=== PATIENT | male | born 1955 | race Caucasian/White ===

== ENCOUNTER 2022-01-13 07:59 | Outpatient (CLI) | payer BC, SELFPAY | END 2022-01-13 08:00 | disposition home or self-care (01) | PROVIDERS: PCP Surgery; Visit Provider Orthopaedic Surgery | DX: Z01.818 Encounter for other preprocedural examination (principal) | CPT/HCPCS: 36415; 86850; 86900; 86901 ==

== ENCOUNTER 2022-01-15 09:31 | Day surgery (SDC) | payer BC, SELFPAY ==
[2022-01-15] VITALS (28 sets, daily range): BP systolic 106–145; BP diastolic 63–105; PULSE 57–83; RESP 10–16; TEMP 35.8–36.8; O2SAT 92–97; BMI 40.4
[2022-01-15] MEDS: CELECOXIB 200 MG CAPSULE PO ×2 (10:00→21:43)
[2022-01-15] MEDS: ACETAMINOPHEN 500 MG TABLET 1000 MG PO ×3 (10:00→23:52)
[2022-01-15] MEDS: LACTATED RINGERS 1000 ML 1,000 ML 100 ML IV (10:30)
[2022-01-15] MEDS: SODIUM CHLORIDE 0.9 % (FLUSH) 10 ML SYRINGE IVF (10:30)
[2022-01-15] MEDS: OXYCODONE (CR) 10 MG TAB.ER.12H PO (11:05)
[2022-01-15] MEDS: MIDAZOLAM HCL 1 MG/ML inj IVP (11:35)
[2022-01-15] MEDS: fentaNYL 100 MCG/2 ML inj IVP (11:35)
--- NOTE | 2022-01-15 11:36 | SUR.PREOP ---
TIME?OUT:?1134 PT/RN/MDA?VERIFICATION?OF?SURGICAL?SITE,?PROCEDURE,?AND?CONSENT OBTAINED?PRIOR?TO?INVASIVE?PROCEDURE.
--- NOTE | 2022-01-15 11:45 | CRLHL7_ITS ---
For Patients: As a result of the Cures Act, medical imaging exams and procedure reports are released immediately into your electronic medical record. You may view this report before your referring provider. If you have questions, please contact your health care provider. Indication: Hip replacement surgery Technique: AP hip fluoroscopic images. Fluoroscopy time 67.7 seconds. Findings/Impression: Hardware from a left total hip arthroplasty is in satisfactory position. Dictated by Clemente Mayfield MD @ 01/15/2022 3:37:24 PM (Electronically Signed)
--- NOTE | 2022-01-15 12:33 | P.NB_ITS ---
Nerve Block Nerve Block Time Seen by Provider: 11:39 Date Seen: 01/15/22 Type of block requested by surgeon for post-operative analgesia: DAVID/LFCN Side: left Time out performed: Yes Verification of patient name: Yes Verification of date of : Yes Site marking: site marked Name of person performing procedure: Stef Continuous monitoring Was continuous monitoring of O2 sat, B/P, quality assurance monitor, recorded every 15 minutes?: Yes Procedure Checklist: sterile prep, needles and gloves Ultrasound guided. Images saved: Yes Medications given in 5ml increments after negative aspiration: Ropivicaine %: 0.5 mL: 30 Needle gauge: 20 Decadron (mg): 10 Precedex (mcg): 25 Patient tolerated procedure well: Yes Additional comments: Needle noted below psoas tendon needle noted adjacent to LFCN Block Charges Block Charge (with Pro Fee): Other Periph Nerve Block Use of Ultrasound Machine for Block: Yes- US Guidance/pain block
--- NOTE | 2022-01-15 12:36 | W.ANESCHARGE ---
Anesthesia Charges Start Date/Time Anesthesia Start Date: 01/15/22 Anesthesia Start Time: 11:52 Stop Date/Time Anesthesia Stop Date: 01/15/22 Anesthesia Stop Time: 15:03 Summary Emergency: No
--- NOTE | 2022-01-15 14:22 | CRLHL7_ITS ---
For Patients: As a result of the Cures Act, medical imaging exams and procedure reports are released immediately into your electronic medical record. You may view this report before your referring provider. If you have questions, please contact your health care provider. Indication: POST OP Left hip Technique: AP hip centered pelvis and lateral view left hip Findings/Impression: Hardware from a left total hip arthroplasty is in satisfactory position. Bone alignment is normal. No sign of acute fracture. Postop changes are within normal limits. Dictated by Clemente Mayfield MD @ 01/15/2022 3:34:09 PM (Electronically Signed)
--- NOTE | 2022-01-15 14:24 | PM.ORPRC ---
Procedure Note Date of procedure: 01/15/22 Procedure: PREOPERATIVE DIAGNOSIS: Left hip osteoarthritis POSTOPERATIVE DIAGNOSIS: Left hip osteoarthritis NAME OF OPERATION: Left total hip arthroplasty SURGEON: Addison Horne MD HAIR MACHINE OPERATOR: Vashti Mcleod PA-C, KEILA Bowden IMPLANTS: 1. [employer] [place] # 56 sector ingrowth cup 2. 36 x 56 +4 neutral polyethylene 3. Actis # 10 standard collared ingrowth stem 4. 36 +1.5 ceramic femoral head ANESTHESIA: General ESTIMATED BLOOD LOSS: 300 cc COMPLICATIONS: None SPECIMENS: None DRAINS: None PREOPERATIVE ANTIBIOTICS: Ancef 3 grams INDICATIONS: The patient is a 66-year-old with a longstanding history of severe, unrelenting left hip pain secondary to end-stage left hip osteoarthritis. Despite appropriate nonoperative management, including activity modification, use of an assist device, anti-inflammatories, [id number] pain medication, physical therapy and injections, they continue to have pain and disability. Operative intervention was offered. The risks, benefits and expected outcomes were discussed in detail. These included but were not limited to: Infection, bleeding, injury to blood vessel or nerve, venous thromboembolism. All questions were answered to their satisfaction. Use of an orthotics prosthetics assistant was necessary throughout the case for patient positioning and safety, soft tissue retraction and closure. A modifier 22 is appropriate for this case. The patient has a weight of 128 kg with a BMI of 40.5 kg/meter squared. The muscles around his hip and thigh are huge. These factors made exposure quite difficult and more than doubled the time typically required to complete the case. PROCEDURE: The patient was placed supine on the Tobias table. General anesthesia was administered. The orthotics prosthetics assistant made sure the patient was properly positioned. The left hip was prepped and draped in the usual sterile fashion. The image intensifier was brought in for a perfect AP pelvis and a perfect double tear drop AP view of each hip which were used for intraoperative templating with our fluoroscopic guide. An oblique incision was made 3 cm distal and 3 cm lateral to the anterior superior iliac spine. The orthotics prosthetics assistant retracted the soft tissues to protect them. Subcutaneous dissection was taken with electrocautery to the superficial fascia. The fascia was divided in line with the incision. Blunt dissection was carried medially to the tensor fascia barron and sartorius interval. Deep dissection was carried with electrocautery. The circumflex vessels were cauterized and divided. The capsule was exposed and then divided in a T-fashion, tagged with #1 Ethibond sutures. Retractors were placed in the joint, held by the orthotics prosthetics assistant. Exposure was quite difficult, given the size of the muscles and depth of the wound. The corkscrew was placed in the femoral head. The neck cut was made in the subcapital region. We made a second neck cut more distal. The napkin ring of bone was removed. The femoral head was removed intact. Acetabular retractors were placed, held by the orthotics prosthetics assistant. The labrum was sharply debrided. The capsule was released. The 43 mm reamer was used to the true medial wall. We then enlarged in 2 mm increments using the image intensifier for our reamer placement. We impacted the cup which had excellent purchase. We placed the hole eliminator and the polyethylene. Attention was then turned to the proximal femur. The limb was placed in 140 degrees of external rotation, maximum extension and adduction. A significant amount of time was spent releasing the capsule to allow us to deliver the femur into the wound and complete the femoral side safely. Again, exposure on the femoral side was quite difficult given the size of the muscles and depth of the wound. Retractors were held by the orthotics prosthetics assistant throughout the femoral preparation. The supervisor transferring and boxing and canal finder were used. Broaches were used to a stable size. The calcar reamer was used. Trial components were placed. The hip was reduced and was found to be stable with appropriate soft tissue tension. Length and offset had been nicely restored using the image intensifier and our fluoroscopic guide. Trial components were removed. The stem was impacted. We placed the femoral head. Again, the hip was reduced and was found to be stable with appropriate soft tissue tension. Length and offset had been nicely restored. The orthotics prosthetics assistant did a three minute dilute Betadine solution soak. The orthotics prosthetics assistant irrigated the wound with 3 liters of normal saline via pulse lavage. The orthotics prosthetics assistant repaired the anterior capsule with a #1 Vicryl and our previously placed Ethibond sutures. The orthotics prosthetics assistant closed the fascia over the tensor fascia barron with a #1 PDO Stratafix, subcutaneous tissues with 2-0 Vicryl, skin with a running 3-0 Stratafix and glue. A dry dressing was applied by the orthotics prosthetics assistant. Sponge and needle counts were correct x 2. The patient tolerated the procedure well; there were no apparent complications. They were awakened and extubated in the operating room, sent to the Post-Anesthesia Care Unit in satisfactory condition. PLAN: 1. The patient will be mobilized with physical therapy, weight-bearing as tolerates 2. Xarelto x 5 days then aspirin x 30 days will be used for DVT prophylaxis 3. The patient will be discharged once medically appropriate
--- NOTE | 2022-01-15 15:04 | W.ANESCHARGE ---
Anesthesia Charges Start Date/Time Anesthesia Start Date: 01/15/22 Anesthesia Start Time: 11:52 Stop Date/Time Anesthesia Stop Date: 01/15/22 Anesthesia Stop Time: 15:03 Summary Emergency: No
--- NOTE | 2022-01-15 15:25 | CRLHL7_ITS ---
For Patients: As a result of the Century Cures Act, medical imaging exams and procedure reports are released immediately into your electronic medical record. You may view this report before your referring provider. If you have questions, please contact your health care provider. Indication: Left ankle pain, post total left hip replacement.. Technique: Left ankle, 3 views. Comparison: None. Findings: Bones: Alignment is normal. No fractures or bone lesions. Joint spaces: Global mild to moderate degenerative changes.. Soft tissues: Soft tissue swelling along the medial aspect of the foot.. Impression: Soft tissue swelling along the medial aspect of the foot, consider further evaluation with dedicated foot radiographs. Global mild to moderate degenerative changes. Dictated by Carlo Saldana MD @ 01/15/2022 4:46:38 PM (Electronically Signed)
[2022-01-15] MEDS: MEPERIDINE 25 MG/ML INJ 12.5 MG IVP (15:41)
[2022-01-15] MEDS: fentaNYL 100 MCG/2 ML inj 50 MCG IVP ×2 (15:45→15:53)
--- NOTE | 2022-01-15 16:06 | SUR.PHASEI ---
Renee GORMAN transfered patient to Med Surg from PACU.
--- NOTE | 2022-01-15 16:06 | SUR.PHASEI ---
Addendum: SHERIF Duran transported Patient from PACU Phase one to Med Surg via BED
--- NOTE | 2022-01-15 17:19 | PM.IMPN1 ---
Progress Note: A&P Assessment and plan (1) Status post left hip replacement: Status: Acute Plan 1. POD #0 s/p left CURTIS under general anesthesia; EBL 300cc pain control/diet/dvt ppx per surgery [xarelto] cbc and bmp in am therapy evaluation Time Spent With Patient Total time spent: 25 minutes Subjective Date Seen: 01/15/22 Interval history: patient doing well following surgery had bm tolerating diet pain controlled denies CP, SOB Exam Narrative: Exam Narrative: Gen: no acute distress HEENT: NCAT EOMI MMM CV: RRR s1 s2 Lctab abd: soft, nt, nd Const: Vital Signs, click to edit/add: Vital Signs - 24 hr 01/15/22 10:51 01/15/22 11:38 01/15/22 11:42 Temperature 98.2 F Pulse Rate 66 59 L 60 Respiratory Rate 16 16 16 Blood Pressure 133/79 124/91 H 117/81 Pulse Oximetry 95 97 97 Oxygen Delivery Me thod Room Air Nasal Cannula Nasal Cannula Oxygen Flow Rate 2 2 01/15/22 15:00 01/15/22 15:05 01/15/22 15:10 Temperature 97.1 F L Pulse Rate 62 59 L 59 L Respiratory Rate 10 L 10 L 12 Blood Pressure 125/77 112/78 125/77 Pulse Oximetry 93 93 97 Oxygen Delivery Me thod Room Air Oxygen Flow Rate 01/15/22 15:15 01/15/22 15:20 01/15/22 15:25 Temperature Pulse Rate 57 L 60 63 Respiratory Rate 12 12 12 Blood Pressure 127/88 122/82 115/80 Pulse Oximetry 97 96 96 Oxygen Delivery Me thod Room Air Oxygen Flow Rate 01/15/22 15:30 01/15/22 15:35 01/15/22 15:50 Temperature 97.2 F L Pulse Rate 63 64 60 Respiratory Rate 12 12 12 Blood Pressure 124/91 H 137/85 121/73 Pulse Oximetry 96 95 97 Oxygen Delivery Me thod Room Air Oxygen Flow Rate 01/15/22 15:40 01/15/22 15:45 01/15/22 15:55 Temperature 97.2 F L Pulse Rate 64 63 71 Respiratory Rate 12 12 12 Blood Pressure 128/105 H 128/79 117/72 Pulse Oximetry 95 96 97 Oxygen Delivery Me thod Room Air Oxygen Flow Rate 2 01/15/22 16:00 Temperature Pulse Rate 64 Respiratory Rate 12 Blood Pressure 126/77 Pulse Oximetry 97 Oxygen Delivery Me thod Room Air Oxygen Flow Rate
[2022-01-15] MEDS: HYDROmorphone 0.5 mg/0.5 ml inj IVP (17:39)
[2022-01-15] MEDS: LACTATED RINGERS 1000 ML 1,000 ML 75 ML IV (17:40)
[2022-01-15] MEDS: CEFAZOLIN 3 GM in 0.9 % SODIUM CHLORIDE 100 ml 100 ML IVPB (18:26)
[2022-01-15] MEDS: OXYCODONE 5 MG TABLET PO ×2 (19:09→21:43)
[2022-01-15] MEDS: SENNOSIDES 1 TAB TABLET 2 TAB PO (21:42)
[2022-01-16] MEDS: CEFAZOLIN 3 GM in 0.9 % SODIUM CHLORIDE 100 ml 100 ML IVPB ×2 (02:26→10:30)
[2022-01-16] MEDS: OXYCODONE 5 MG TABLET PO ×3 (02:28→11:20)
[2022-01-16 03:00] VITALS: BP 128/77; PULSE 75; RESP 16; TEMP 36.6; O2SAT 93
--- NOTE | 2022-01-16 04:50 | PC.NURSE ---
End of Shift: Patient pleasant and cooperative. Afebrile. Dressing to left hip C/D/I. CMS intact. C/o pain in hip and left ankle on arrival from PACU. PRN Dilaudid x1. Pain in ankle resolved. Pain in hip up to 3-4/10 and PRN Oxycodone given x3. Up to chair and bathroom with 1 assist, walker and gait belt. Tolerating regular diet with no nausea.
[2022-01-16] MEDS: ACETAMINOPHEN 500 MG TABLET 1000 MG PO ×2 (06:22→11:17)
[2022-01-16 06:49] LABS: Hematocrit 34.5 % (37.0-53.0); Hemoglobin* 11.6 gm/dL (13.5-17.5); Immature Granulocytes Pct Auto 0.2 %; Lymphocytes Percent Auto 6.1 % (20-44); Mean Corpuscular HGB Conc 34 gm/dL (32-36); Mean Corpuscular Hemoglobin 29 pg (26-34); Mean Corpuscular Volume 86 fL (80-100); Monocytes Percent Auto 6.2 % (0.0-11.0); Neutrophils Percent Auto 87.5 % (42.0-72.0); Platelet Count* 254 K/uL (140-440); RDW Coefficient of Variation % 13.3 % (11.5-15.5); Red Blood Count 4.02 m/uL (4.30-5.90); White Blood Count* 13.86 K/uL (4.50-11.00)
[2022-01-16 06:53] LABS: Slide Review Reflex No
[2022-01-16 07:00] VITALS: BP 134/86; PULSE 68; RESP 16; TEMP 36.9; O2SAT 94
[2022-01-16 07:02] LABS: Potassium* 4.3 mmol/L (3.6-5.1); Sodium* 134 mmol/L (135-149)
[2022-01-16 07:05] LABS: Creatinine* 0.9 mg/dL (0.5-1.5); Est. Creatinine Clearance* 76.04; Estimated Glomerular Filt Rate 95 ml/min
[2022-01-16 07:06] LABS: Blood Urea Nitrogen* 21 mg/dL (7-30)
--- NOTE | 2022-01-16 08:11 | PM.ORPN ---
Subjective Subjective Time Seen by Provider: 08:30 Date Seen: 01/16/22 Principal diagnosis: S/P day 1 left total hip arthroplasty Interval history: [place] is doing well this morning and is resting comfortably in bed. Patient complains of left lateral leg pain distal to his incision worse with ambulation. Also reports lateral thigh numbness. Left hip pain is well managed with current scheduled and PRN oral pain medications and ice. Left ankle pain has resolved. Denies: fever, chills, body aches, chest pain, SOB. Patient has not yet been seen by Physical Therapy. Denies BM since surgery, but admits to flatulence. No acute events over night. Ortho Exam Narrative Exam Narrative: Incision/Dressing: Dressing appears clean and dry. No drainage present. Mepilex intact. Left hip appears moderately swollen but supple with no obvious erythema, fluctuance or excessive warmth. No ecchymosis or erythematous streaking. Warmth around the wound is appropriate. Ice is being utilized as needed. CMS: Intact distally with 2+ Dorsalis pedis and Posterior Tibial pulses. 5/5 motor strength dorsal and plantar flexion. Confirmed sensation distally. Intact straight leg raise. Calf: Bilateral calves are supple, with no swelling, pain, tenderness, erythema, discoloration or coolness to the touch. Constitutional: Patient is alert and oriented x3. Patient is in no acute distress and converses without labored breathing. Patient is able to make decisions and demonstrates good insight. Patient is pleasant and cooperative. Affect is full range and appropriate for the circumstances. Const Vital Signs, click to edit/add: Vital Signs - 24 hr 01/15/22 10:51 01/15/22 11:38 01/15/22 11:42 Temperature 98.2 F Pulse Rate 66 59 L 60 Pulse Rate [Right Pulse Oximeter] Respiratory Rate 16 16 16 Blood Pressure 133/79 124/91 H 117/81 Blood Pressure [Left Arm] Pulse Oximetry 95 97 97 Oxygen Delivery Method Room Air Nasal Cannula Nasal Cannula Oxygen Flow Rate 2 2 01/15/22 15:00 01/15/22 15:05 01/15/22 15:10 Temperature 97.1 F L Pulse Rate 62 59 L 59 L Pulse Rate [Right Pulse Oximeter] Respiratory Rate 10 L 10 L 12 Blood Pressure 125/77 112/78 125/77 Blood Pressure [Left Arm] Pulse Oximetry 93 93 97 Oxygen Delivery Method Room Air Oxygen Flow Rate 01/15/22 15:15 01/15/22 15:20 01/15/22 15:25 Temperature Pulse Rate 57 L 60 63 Pulse Rate [Right Pulse Oximeter] Respiratory Rate 12 12 12 Blood Pressure 127/88 122/82 115/80 Blood Pressure [Left Arm] Pulse Oximetry 97 96 96 Oxygen Delivery Method Room Air Oxygen Flow Rate 01/15/22 15:30 01/15/22 15:35 01/15/22 15:50 Temperature 97.2 F L Pulse Rate 63 64 60 Pulse Rate [Right Pulse Oximeter] Respiratory Rate 12 12 12 Blood Pressure 124/91 H 137/85 121/73 Blood Pressure [Left Arm] Pulse Oximetry 96 95 97 Oxygen Delivery Method Room Air Oxygen Flow Rate 01/15/22 15:40 01/15/22 15:45 01/15/22 15:55 Temperature 97.2 F L Pulse Rate 64 63 71 Pulse Rate [Right Pulse Oximeter] Respiratory Rate 12 12 12 Blood Pressure 128/105 H 128/79 117/72 Blood Pressure [Left Arm] Pulse Oximetry 95 96 97 Oxygen Delivery Method Room Air Oxygen Flow Rate 2 01/15/22 16:00 01/15/22 16:10 01/15/22 16:30 Temperature 96.5 F L 97.4 F L Pulse Rate 64 63 Pulse Rate [Right Pulse Oximeter] 62 Respiratory Rate 12 16 16 Blood Pressure 126/77 Blood Pressure [Left Arm] 136/82 138/97 H Pulse Oximetry 97 97 Oxygen Delivery Method Room Air Room Air Room Air Oxygen Flow Rate 01/15/22 16:45 01/15/22 18:15 01/15/22 19:15 Temperature 97.9 F Pulse Rate Pulse Rate [Right Pulse Oximeter] 62 80 72 Respiratory Rate 16 16 16 Blood Pressure Blood Pressure [Left Arm] 141/89 H 123/80 116/93 H Pulse Oximetry 97 94 95 Oxygen Delivery Method Room Air Room Air Room Air Oxygen Flow Rate 01/15/22 20:15 01/15/22 21:15 01/15/22 22:15 Temperature 98.3 F Pulse Rate Pulse Rate [Right Pulse Oximeter] 83 73 74 Respiratory Rate 16 16 16 Blood Pressure Blood Pressure [Left Arm] 114/67 106/63 126/81 Pulse Oximetry 93 93 93 Oxygen Delivery Method Room Air Room Air Room Air Oxygen Flow Rate 01/15/22 23:00 01/15/22 17:00 01/16/22 03:00 Temperature 98.2 F 97.9 F Pulse Rate Pulse Rate [Right Pulse Oximeter] 80 70 75 Respiratory Rate 16 16 16 Blood Pressure Blood Pressure [Left Arm] 123/83 133/83 128/77 Pulse Oximetry 96 96 93 Oxygen Delivery Method Room Air Room Air Room Air Oxygen Flow Rate 01/15/22 17:15 01/15/22 17:45 Temperature Pulse Rate Pulse Rate [Right Pulse Oximeter] 80 75 Respiratory Rate 16 16 Blood Pressure Blood Pressure [Left Arm] 145/77 H 132/90 H Pulse Oximetry 92 95 Oxygen Delivery Method Room Air Room Air Oxygen Flow Rate Assessment and Plan Assessment and plan (1) Status post left hip replacement: Problem details: DOS: 01/15/22 Status: Acute Assessment and Plan: - I reviewed 3-view left ankle images dated 01/15/22, these show no acute fractures. Left ankle pain likely from the twisting with the foot brooks used during surgery. - Complete 23 hour perioperative antibiotics. - PT/OT consults for education and assistance. - Social consult for discharge planning. - Weight bear as tolerated. - DVT prophylaxis includes: Xarelto x 5 days followed by aspirin 81 mg BID x 1 month. Also bilateral knee high Be stockings (x 1 month), frequent ambulation and ankle pumps when sedentary. - Anticipate patient will be discharged to home this afternoon if the patient remains medically stable, pain is controlled and is safe with ambulation. - Return to clinic in 1 week for a wound check. Mepilex dressing will be removed at this appointment. Remove sooner if dressing becomes saturated. - Return to clinic in [address] Horne. - Prescribed analgesics as needed. Patient is content with current narcotic medications. Minimize narcotic pain medication use; wean off and discontinue as soon as possible. - Phone Orthopedics with any questions or concerns.
[2022-01-16] MEDS: CELECOXIB 200 MG CAPSULE PO (08:15)
[2022-01-16] MEDS: SENNOSIDES 1 TAB TABLET 2 TAB PO (08:16)
[2022-01-16] MEDS: RIVAROXABAN 10 MG TABLET PO (08:16)
[2022-01-16 11:00] VITALS: BP 112/80; PULSE 68; RESP 16; TEMP 36.9; O2SAT 91
[2022-01-16 11:17] VITALS: TEMP 36.9
--- NOTE | 2022-01-16 12:55 | PC.NURSE ---
Discharge note: Pt friendly and cooperative. VS WNL and LS COA. Afebrile. Surgical dressing to left thigh C,D,&I with active ice in place. Pt c/o 5/10 pain. Oxycodone given PRN and pt verbalizes position change is helpful for relief. Moves well with SBA. Pt was discharged to home via wheelchair in the care of his at 1300. Pt and his verbalized understanding of discharge instructions and follow up appointments.
--- NOTE | 2022-01-17 17:08 | PC.NURSE ---
Accessed patient account due to call from patient regarding recent surgery. Patient febrile with temp of 101.9, decreased to 100 degrees after Tylenol at 1300. BINA [place] notified. He is calling patient back to discuss treatment.
== END 2022-01-16 12:59 | disposition home or self-care (01) ==
LOC: OR 09:44 → MEDSURG 09:45
PROVIDERS: PCP Surgery; Visit Provider Orthopaedic Surgery
PROC: (CPT 27130; principal; 2022-01-15 11:45)
DX: M16.12 Unilateral primary osteoarthritis, left hip (principal); M25.552 Pain in left hip
CPT/HCPCS: 27130; 01214; 36415; 64450; 73501; 73610; 76000; 76942; 82565; 84132; 84295; 84520; 85025; 97110; 97116; 97161; 97165; 97535; A9270; C1776; J0330; J0690; J1100; J1170; J2175; J2250; J2370; J2405; J2704; J2795; J3010; J7120

== ENCOUNTER 2022-01-21 14:31 | Outpatient (CLI) | payer BC, SELFPAY ==
--- NOTE | 2022-01-21 15:00 | CRLHL7_ITS ---
For Patients: As a result of the Century Cures Act, medical imaging exams and procedure reports are released immediately into your electronic medical record. You may view this report before your referring provider. If you have questions, please contact your health care provider. INDICATION: Calf tenderness and swelling status post left hip replacement on 01/15/2022. TECHNIQUE: Ultrasound venous duplex lower left extremity. Compression venous exam was performed using cohen-scale, color Doppler, and spectral Doppler analysis. COMPARISON: None. FINDINGS: Deep veins: Sonographic imaging demonstrates the left common femoral, deep femoral, superficial femoral, popliteal, posterior tibial, peroneal, and the contralateral right common femoral veins to be fully compressible with normal color Doppler blood flow. Superficial veins: Greater saphenous vein is fully compressible. There is a heterogeneous hypoechoic tubular collection in the posterior/mid left calf measuring 8.6 x 0.7 x 2.7 cm. No color Doppler images of this area were obtained to evaluate for the presence of blood flow. Large popliteal cyst measuring 7.8 x 3.3 x 4.8 cm IMPRESSION: No deep venous thrombosis within the evaluated veins of the left lower extremity. Large, 7.8 cm popliteal cyst. Heterogeneous hypoechoic tubular collection in the posterior/mid left calf measuring 8.6 x 0.7 x 2.7 cm. Differential considerations include a thrombosed superficial vein or hematoma/seroma. Consider repeat examination of this area color Doppler to evaluate for vascularity. Dictated by Matti Herrera MD @ 01/22/2022 1:08:37 AM (Electronically Signed)
== END 2022-01-21 14:32 | disposition home or self-care (01) ==
LOC: US 14:32
PROVIDERS: PCP Surgery; Visit Provider Physician Assistant
DX: M79.662 Pain in left lower leg (principal); M71.22 Synovial cyst of popliteal space [Baker], left knee; Z96.642 Presence of left artificial hip joint
CPT/HCPCS: 93971

== ENCOUNTER 2022-02-12 15:00 | Outpatient (RCR) | payer BC, SELFPAY ==
--- NOTE | 2022-01-06 15:05 | PT.OPEX ---
PT [place] [facility] PT [facility] Eval Start: 01/06/22 08:27 Freq: Status: Active Protocol: Document 01/06/22 12:54 DOMENICO (Rec: 01/06/22 13:04 DOMENICO [id number]) E-signed By Shaista Patel DPT Physical Therapy Outpatient Evaluation Insurance Information Recert Due Date 04/06/22 Insurance Name [employer] Medical Diagnosis L hip OA L CURTIS 01/15/22 Treating Diagnosis L hip pain, impaired L hip ROM , core/hip/glut weakness, limping/antalgic gait, limited tolerance for extended standing/walking, interrupted sleep Subjective Subjective Patient reports chronic L hip pain for the past year. States xrays showed bone on bone and he is scheduled for L CURTIS 01/15. He has increased pain with transitional movements sit/stand and extended standing/walking are limited by pain. Gait is slow , limping, antalgic without an AD. States he will borrow a FWW from his mother to use after surgery. Spouse is able to assist as needed after surgery. He is using tylenol for pain. Pain rated 8/10. 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 He is seen in PT today for pre-op session to provide education/ information on upcoming CURTIS surgery, safety information/HO , equipment instruction including use of FWW, and instruction in CURTIS exercises. Handouts issued for exercises , patient to perform them leading up to surgery. Reviewed PT/OT plan during hospital stay and patient is scheduled for OP PT post op. Patient would benefit from skilled PT for pain/sx management, improved hip ROM, improved hip/LE mobility/ strength, improved gait, balance/proprioception training, and establishment of HEP. Plan of Care Rehabilitation Potential Good Physical Therapy Goals 1. Patient will be educated in CURTIS pre/post-op safety, mobility, and exercises with HOs provided within one visit with patient returning to PT for post op treatment after L CURTIS surgery on 01/15/22. PT goals will be updated to CURTIS rehab goals when patient returns post op. Coordination/Communication With Referral Source Treatment Plan/Direct Interventions Gait Training,Manual Therapy, Therapeutic Exercises Frequency/Duration one pre-op session and then 1x /week post op Patient Will Be Discharged From Therapy Completion of LTG(s),Skills Plateau,Independent w/HEP, Independently Progressing Evaluation Billing Untimed Code Treatment Minutes 34 Complexity Moderate Certification Information Initial Certification Date 01/06/22 Ending Certification Date 04/06/22 Provider Signature Shows Agreement With POC & Medical Necessity Physician Signature & Date Requested Please Sign/Date Here Physician Comment/Change : Physician NPI Number #
== END 2022-04-10 11:12 | disposition home or self-care (01) ==
PROVIDERS: PCP Surgery; Visit Provider Orthopaedic Surgery
DX: M25.552 Pain in left hip (principal); Z51.89 Encounter for other specified aftercare; Z96.642 Presence of left artificial hip joint
CPT/HCPCS: 97110; 97162; 97164

== ENCOUNTER 2023-01-27 07:01 | Outpatient (CLI) | payer MEDICARE, BC, SELFPAY ==
--- NOTE | 2023-01-27 07:15 | MR_ITS ---
[address] [address] Phone:?[phone] Fax:?[phone] Referring Physician Information: Addison Horne M.D. [id number] [facility] [address] Phone:?[phone] Fax:?[phone] Patient:Uzma Murray D.O.B:?1955 Sex:?Male Phone:?[phone] [facility] MRN:?[id number] Exam Date:?01/27/2023 EXAM: MRI of the LEFT ANKLE CLINICAL HISTORY: Left ankle pain and swelling. COMPARISONS: None available. TECHNICAL: MRI sequences of the left ankle: Axials: PD, T2 Coronals: PD, T2 Sagittals: PD, T2, STIR Sedation: None Contrast: None FINDINGS: Joints and osseous structures: No fracture or destructive osseous lesion is seen. Cystlike changes within the distal fibular tip are noted. No subluxation, dislocation, or tarsal coalition is seen. Hindfoot valgus angle measures 24 degrees. There are slight osteoarthritic changes of the navicular-cuneiform joint articulations. Ligaments: Syndesmotic: The anterior inferior tibiofibular, posterior inferior tibiofibular, and inferior transverse ligaments are intact. Anterior talofibular: Attenuation, ill-definition, and irregularity. 8 x 7 x 4 mm ganglion at the fibular attachment. Calcaneofibular: Attenuation, ill-definition, irregularity. Posterior talofibular: Marked ill-definition of the posterior talofibular ligament. Deltoid: No evidence of discrete injury of the deltoid ligament. Spring: Unremarkable. Sinus tarsi: Extensive scarring throughout the sinus tarsi. Bifurcate: No acute injury. Calcaneocuboid: Unremarkable medial, dorsolateral and plantar ligaments. Lisfranc ligament complex: Not covered in the [id number] of this study. Flexor tendons: Posterior tibial: There is mild posterior tibialis tenosynovitis. Flexor digitorum longus: There is slight flexor digitorum longus tenosynovitis. Flexor hallucis longus: Intact. Peroneal tendons: There is fraying and mild tendinopathy of the peroneus brevis tendon between the distal fibular tip and calcaneal peroneal tubercle. Substantial fibular retromalleolar spurring abuts the peroneal tendons. Mild thickening and irregularity of the superior peroneal retinaculum at the fibular attachment are findings that likely reflect sequelae of chronic sprain injury. No subluxation of the peroneal tendons lateral to the fibular spurring. Extensor tendons: Tibialis anterior: Intact. Extensor hallucis longus: Intact. Extensor digitorum longus: Intact. Achilles tendon: Intact. Plantar aponeurosis: The central cord of the plantar fascia measures 6 mm in thickness near the calcaneal attachment. There is a moderately sized plantar calcaneal enthesophyte. There is no associated bone marrow edema or adjacent soft tissue edema. Sinus Tarsi:?Extensive scarring throughout the sinus tarsi. Tarsal tunnel: Unremarkable. IMPRESSION: 1. Attenuation, ill-definition, and irregularity of the anterior talofibular and calcaneofibular ligaments are findings consistent with sequelae of chronic tear injuries. Correlate with any clinical evidence of lateral ligamentous instability. 8 x 7 x 4 mm ganglion at the fibular attachment of the anterior talofibular ligament. Cystlike changes within the distal fibular tip may reflect enthesopathic changes or could be degenerative in etiology but are nonspecific. 2. Extensive scarring throughout the sinus tarsi is nonspecific; correlate with any clinical evidence of sinus tarsi syndrome. 3. Hindfoot valgus with a hindfoot valgus angle of 24 degrees. 4. Marked ill-definition of the posterior talofibular ligament could reflect mucoid degeneration/chronic attritional change although sequela of chronic sprain injury is not excluded. 5. Fraying and mild tendinopathy of the peroneus brevis tendon between the distal fibular tip and calcaneal peroneal tubercle. Substantial fibular retromalleolar spurring abuts the peroneal tendons. Mild thickening and irregularity of the superior peroneal retinaculum at the fibular attachment are findings that likely reflect sequelae of chronic sprain injury. No subluxation of the peroneal tendons lateral to the fibular spurring. 6. Mild posterior tibialis tenosynovitis. Slight flexor digitorum longus tenosynovitis. 7. Moderate thickening of the central cord of the plantar fascia and a moderately sized plantar calcaneal enthesophyte are findings consistent with chronic fasciopathy. No evidence of acute plantar fasciitis. RCB Electronically signed on 01/27/2023 11:10:00 PM by Marc Shine M.D.
== END 2023-01-27 07:02 | disposition home or self-care (01) ==
LOC: MRI 07:02
PROVIDERS: PCP Surgery; Visit Provider Orthopaedic Surgery
DX: M25.572 Pain in left ankle and joints of left foot (principal); S93.492A Sprain of other ligament of left ankle, initial encounter
CPT/HCPCS: 73721

== ENCOUNTER 2023-02-12 08:15 | Outpatient (RCR) | payer OTHER, BC, SELFPAY | END 2023-05-07 11:32 | disposition home or self-care (01) | PROVIDERS: PCP Surgery; Visit Provider Surgery | DX: M25.511 Pain in right shoulder (principal); G89.29 Other chronic pain; Z74.09 Other reduced mobility; R29.898 Other symptoms and signs involving the musculoskeletal system; Z51.89 Encounter for other specified aftercare | CPT/HCPCS: 97035; 97110; 97140; 97162 ==

== ENCOUNTER 2024-05-02 11:09 | Day surgery (SDC) | payer MEDICARE, BC, SELFPAY ==
[2024-05-02] VITALS (23 sets, daily range): BP systolic 114–160; BP diastolic 68–102; PULSE 41–64; RESP 12–18; TEMP 35.6–36.4; O2SAT 92–100; BMI 39.3
[2024-05-02] MEDS: LACTATED RINGERS 1000 ML 1,000 ML 100 ML IV ×2 (11:30→17:34)
[2024-05-02] MEDS: ACETAMINOPHEN 500 MG TABLET 1000 MG PO ×2 (12:20→20:01)
[2024-05-02] MEDS: CELECOXIB 200 MG CAPSULE PO (12:20)
--- NOTE | 2024-05-02 12:49 | SUR.PREOP ---
1000 mg Tylenol and 200 mg Celecoxib given in Preop area on 05/02/24 at 1220. Edited MAR from given on 04/27/24 date to 05/02/14 date but still showing up on 04/27/24 date.
[2024-05-02] MEDS: MIDAZOLAM HCL 1 MG/ML inj IVP (13:57)
[2024-05-02] MEDS: fentaNYL 100 MCG/2 ML inj IVP (13:57)
--- NOTE | 2024-05-02 14:01 | SUR.PREOP ---
TIME?OUT:?1208 PT/clary claudio RN/shara cerrato MDA?VERIFICATION?OF?SURGICAL?SITE,?PROCEDURE,?AND?CONSENT OBTAINED?PRIOR?TO?INVASIVE?PROCEDURE.
[2024-05-02] MEDS: CEFAZOLIN 2 GM INJ IVP (15:14)
[2024-05-02] MEDS: TRANEXAMIC ACID 100 MG/ML INJ 1000 MG IV (15:15)
--- NOTE | 2024-05-02 15:59 | W.PM.NB ---
Nerve Block Nerve Block Time Seen by Provider: 12:10 Date Seen: 05/02/24 Type of block requested by surgeon for post-operative analgesia: adductor canal Side: left Time out performed: Yes Verification of patient name: Yes Verification of date of : Yes Site marking: site marked Name of person performing procedure: Stef Continuous monitoring Was continuous monitoring of O2 sat, B/P, quality assurance monitor final, recorded every 15 minutes?: Yes Procedure Checklist: sterile prep, needles and gloves Ultrasound guided. Images saved: Yes Medications given in 5ml increments after negative aspiration: Marcaine %: 0.25 mL: 15 Needle gauge: 20 Precedex (mcg): 25 Patient tolerated procedure well: Yes Block Charges Block Charge (with Pro Fee): Femoral Nerve Use of Ultrasound Machine for Block: Yes- US Guidance/pain block
--- NOTE | 2024-05-02 16:00 | W.PM.NB ---
Nerve Block Nerve Block Time Seen by Provider: 12:10 Date Seen: 05/02/24 Type of block requested by surgeon for post-operative analgesia: geniculars Side: left Time out performed: Yes Verification of patient name: Yes Verification of date of : Yes Site marking: site marked Name of person performing procedure: Stef Continuous monitoring Was continuous monitoring of O2 sat, B/P, teletypesetter monitor, recorded every 15 minutes?: Yes Procedure Checklist: sterile prep, needles and gloves Ultrasound guided. Images saved: Yes Medications given in 5ml increments after negative aspiration: Marcaine %: 0.25 mL: 9 Needle gauge: 25 Patient tolerated procedure well: Yes Block Charges Block Charge (with Pro Fee): Genicular Nerve Block
--- NOTE | 2024-05-02 17:21 | CRLHL7_ITS ---
For Patients: As a result of the Century Cures Act, medical imaging exams and procedure reports are released immediately into your electronic medical record. You may view this report before your referring provider. If you have questions, please contact your health care provider. Indication: POST OP LT KNEE Technique: Two views left knee Findings/Impression: Hardware from a left total knee arthroplasty is in satisfactory position. Bone alignment is normal. No sign of acute fracture. Postop changes are within normal limits. Dictated by Clemente Mayfield MD @ 05/03/2024 8:43:56 AM (Electronically Signed)
--- NOTE | 2024-05-02 17:24 | P.ORPRC_ITS ---
Procedure Note Date of procedure: 05/02/24 Procedure: PREOPERATIVE DIAGNOSIS: Left knee osteoarthritis POSTOPERATIVE DIAGNOSIS: Left knee osteoarthritis NAME OF OPERATION: Left total knee arthroplasty SURGEON: Addison Horne MD PIPE FITTER SUPERVISOR: Lulu Mcleod PA-C ANESTHESIA: Spinal ESTIMATED BLOOD LOSS: 50 mL COMPLICATIONS: None SPECIMENS: None DRAINS: None PREOPERATIVE ANTIBIOTICS: Ancef 3 grams IMPLANTS: 1. J&J Attune # 9 posterior stabilized femur 2. # 8 revision CRS fixed-bearing tibia, 14 mm x 50 mm cemented stem 3. # 9 posterior stabilized, 6 mm fixed-bearing polyethylene 4. 38 patella INDICATIONS: The patient is a 69-year-old with a longstanding history of severe, unrelenting left knee pain secondary to end-stage (grade IV) left knee osteoarthritis. Despite appropriate nonoperative management, including activity modification, anti-inflammatories, [id number] pain medication, bracing, physical therapy, and injections they continue to have pain and disability. Operative intervention was offered. The risks, benefits and expected outcomes were discussed in detail. These included but were not limited to: Infection, bleeding, injury to blood vessel or nerve, venous thromboembolism. All questions were answered to their satisfaction. Use of an porcelain buildup assistant was necessary throughout the case for patient positioning and safety, soft tissue retraction, and closure. A modifier 22 should be added to this case. The patient weighs 130 kg with a BMI of 40 the knee is quite tight. Exposure was difficult. This more than doubled the time typically required to complete the case. PROCEDURE: Spinal anesthesia was administered. The patient was placed supine on the operating table. The porcelain buildup assistant made sure the patient was positioned appropriately. The lower extremity was prepped and draped in the usual sterile fashion. The limb was exsanguinated with the Jarvis bandage. The pneumatic tourniquet was inflated to 300 mmHg. A standard anterior incision was made with the knee in flexion. Subcutaneous dissection was sharply taken through fascial layer #1. Full-thickness medial and lateral flaps were elevated. The porcelain buildup assistant retracted the soft tissues and protected them throughout the case. A standard subvastus approach was made. The patella was subluxed. The infrapatellar fat pad was debrided. The menisci and cruciate ligaments were sharply d?brided. Marginal osteophytes were d?brided with the rongeur. The drill was used to penetrate the femoral canal. The canal was aspirated and irrigated with pulse lavage. The intramedullary femoral guide was placed for a 5-degree valgus cut, removing 10 mm off the distal femur. The saw was used to make the cut. Whitesides line and the trans epicondylar axis were marked. The femoral sizing guide was pinned onto the distal femur. Three degrees of external rotation nicely parallels the transepicondylar axis. Pins were placed for posterior referencing. The four-in-one cutting guide was pinned onto the distal femur. The anterior, posterior, and chamfer cuts were made. The porcelain buildup assistant protected the collateral ligaments. The box cutting guide was pinned. The box cuts were made. The boxed trial was placed and was an excellent fit. Drill holes for the lugs were made. Attention was then turned to the proximal tibia. The extramedullary tibial guide was placed for a neutral varus/valgus cut with 5 degrees of posterior slope, removing 2 mm based off the medial tibial surface. The porcelain buildup assistant protected the collateral ligaments and the neurovascular bundle. The saw was used to make the cut. Trial components were placed. The knee was nicely balanced in both flexion and extension. The trial components were removed. The tray was placed in appropriate rotation, parallel to our tibial cutting pins. It was pinned by the porcelain buildup assistant and the drill x2 was used. The stemmed tibial trial was placed. The punch was used. The tray was removed. The punch was used again. Attention was then turned to the patella. [place] patellar thickness was 22 mm. The lobster claw resection guide was used with the 9.5 mm gaby. The saw was used to make the cut. Drill holes were made by the porcelain buildup assistant. The trial was placed and was an excellent fit. Cancellous surfaces were irrigated with pulse lavage and thoroughly dried by the porcelain buildup assistant. We cemented the tibial component, then the femoral component. We impacted the 6 mm polyethylene onto the tibial tray. The knee was brought into full extension. We then cemented the patellar component. Excessive cement was removed. The cement was allowed to harden. The knee was taken through a range of motion and was found to be nicely balanced in both flexion and extension. The patella tracks centrally. The porcelain buildup assistant did a three minute dilute Betadine solution soak. The porcelain buildup assistant irrigated the wound with 3 liters of normal saline via pulse lavage. The porcelain buildup assistant reapproximated the extensor mechanism with #1 Vicryl in an interrupted adlidi-tp-juunf fashion. The porcelain buildup assistant then ran the extensor mechanism with a #1 PDO Stratafix. The porcelain buildup assistant closed the subcutaneous tissues with a 3-0 Stratafix and the skin with a running 3-0 Stratafix in a subcuticular fashion. Glue was used to seal the skin. The porcelain buildup assistant placed a dry dressing. Sponge and needle counts were correct x2. The patient tolerated the procedure well. There were no apparent complications. They were carefully transferred to the hospital bed and taken to the postanesthesia care unit in satisfactory condition. PLAN: The patient will be mobilized with physical therapy. Aspirin will be used for DVT prophylaxis. They will be discharged to home once medically appropriate.
--- NOTE | 2024-05-02 18:39 | P.ANES_ITS ---
Anesthesia Charges Start Date/Time Anesthesia Start Date: 05/02/24 Anesthesia Start Time: 14:52 Stop Date/Time Anesthesia Stop Date: 05/02/24 Anesthesia Stop Time: 18:36 Coding CPT Codes CPT Codes: ANESTH KNEE ARTHROPLASTY - 97154 ([id number]) P3 - PATIENT W/SEVERE SYS DISEASE, QZ - PLANT SCIENTIST SVC W/O CRIMINAL RESEARCH SPECIALIST BY
--- NOTE | 2024-05-02 18:39 | W.ANESCHARGE ---
Anesthesia Charges Start Date/Time Anesthesia Start Date: 05/02/24 Anesthesia Start Time: 14:52 Stop Date/Time Anesthesia Stop Date: 05/02/24 Anesthesia Stop Time: 18:36 Coding CPT Codes CPT Codes: ANESTH KNEE ARTHROPLASTY - 15902 ([id number]) P3 - PATIENT W/SEVERE SYS DISEASE, QZ - SHERIFFS OFFICER SVC W/O GENERAL OFFICE ASSISTANT BY
[2024-05-02] MEDS: fentaNYL 100 MCG/2 ML inj 50 MCG IVP ×3 (18:45→19:05)
[2024-05-02] MEDS: LACTATED RINGERS 1000 ML 1,000 ML 75 ML IV (19:40)
--- NOTE | 2024-05-02 19:58 | P.IMCN_ITS ---
Date of Consult Patient: Jose Raul Patient Consult date: 05/02/24 Requesting Physician: Orthopedics Primary Care Provider: Anthony West MD Consult Narrative Reason for consult: hyperlipidemia Narrative: Israel Murray is a 69 year old male with hyperlipidemia, history of exertional dyspnea associated with diastolic dysfunction, history of tobacco use, and history of vitamin-D deficiency who underwent an elective left total knee arthroplasty today by Dr. Horne for severe osteoarthritis. , Staci, is with him. Don c/o pain in his knee. He notes that he just got pain medication and it hasn't started working yet. He is otherwise doing well. Denies nausea, CP, SOB. Review of Systems Status of ROS: Reports: 6 or more systems reviewed and unremarkable except as noted in History and below PFSH [facility] Medical History (Updated 05/02/24 @ 20:11 by Leatha Fuentes MD) Vitamin D deficiency ?E55.9 - Vitamin D deficiency, unspecified (ICD-10) Diastolic dysfunction ?I51.89 - Other ill-defined heart diseases (ICD-10) Hyperlipidemia ?E78.5 - Hyperlipidemia, unspecified (ICD-10) Osteoarthritis of hip ?M16.9 - Osteoarthritis of hip, unspecified (ICD-10) Surgical History (Updated 05/02/24 @ 20:05 by Leatha Fuentes MD) Status post total left knee replacement ?Z96.652 - Presence of left artificial knee joint (ICD-10) Hx of colonoscopy ?Z98.890 - Other specified postprocedural states (ICD-10) History of back surgery (~2009) ?Z98.890 - Other specified postprocedural states (ICD-10) S/P total left hip arthroplasty (01/15/22) ?Z96.642 - Presence of left artificial hip joint (ICD-10) H/O hernia repair (~2015) ?Z98.890 - Other specified postprocedural states (ICD-10) ?Z87.19 - Personal history of other diseases of the digestive system (ICD-10) S/P arthroscopy of right shoulder (12/30/06) ?Z98.890 - Other specified postprocedural states (ICD-10) S/P right knee arthroscopy (03/07/10) ?Z98.890 - Other specified postprocedural states (ICD-10) S/P left knee arthroscopy (06/21/12) ?Z98.890 - Other specified postprocedural states (ICD-10) Status post carpal tunnel release (01/11/18) ?Z98.890 - Other specified postprocedural states (ICD-10) Family History Father Diabetes High blood pressure Paternal Grandfather Myocardial infarction Sister History of hip replacement Ovarian cancer Brother History of hip replacement Social History (Updated 05/02/24 @ 22:06 by Leatha Fuentes MD) Narrative: . 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 Current nonsmoker, quit over 15 years ago. Occasional alcohol use, 1-2 drinks/month. Denies recreational drug use. What is your current living situation?: I presently have a place to live Problems where you live: no known problems In the past 12 months, utilities in danger of being shut off: no In past 12 months, lack of transportation kept you from medical appts, meetings, work, or getting things needed for daily living: no In the past 12 mos, have been you worried that your food would run out before you had money to buy more?: never true In the past 12 mos, the food you bought just didn't last and you didn't have money to buy more?: never true Highest level of school completed/degree received: Associate degree: occupational, technical, vocational program Smoking Status: Former smoker What tobacco products do you use: cigarettes Smoking packs per day: 0.5 Smoking cigarettes per day: 10.0 Years smoked: 20 Smoking pack-years: 10.00 Smoking quit date/years: >15 years ago Do you use any of these nicotine containing products: None Second hand tobacco smoke exposure: No How often do you have a drink containing alcohol: monthly or less Alcohol type: beer and hard liquor How many standard drinks containing alcohol do you have on a typical day: 1 or 2 How often do you have six or more drinks on one occasion: Less than monthly AUDIT-C Alcohol total score: 2 Non-prescribed substance use: denies use Caffeine: Yes (daily coffee) How often does anyone, including family, friends and others, physically hurt you : never How often does anyone, including family, friends and others, insult or talk down to you: never How often does anyone, including family, friends and others, threaten you with harm: never How often does anyone, including family, friends and others, scream or curse at you: never service: No Meds Home Medications and Allergies Home Medications ?Medication ?Instructions ?Recorded ?Confirmed ?Type aspirin 81 mg tablet,delayed 81 mg PO DAILY 05/02/24 05/02/24 History release (Adult Aspirin Regimen) Allergies Allergy/AdvReac Type Severity Reaction Status Date / Time oxycodone AdvReac dizzy, Verified 05/02/24 14:33 room spinning Exam Narrative: Exam Narrative: General: No acute distress. Awake alert oriented x3. HEENT: Normocephalic atraumatic, pupils equally round and reactive to light and accommodation. Oropharynx clear. Mucous membranes are moist. No JVD. Cardiovascular: Regular rate and rhythm. No murmurs, gallops, or rubs. Chest: No increased work of breathing. Clear to auscultation bilaterally. No crackles or wheezes. Abdomen: Bowel sounds present. Soft, nondistended, nontender. No hepatospleno megaly or masses. Extremities: Left knee bandage is clean, dry, and intact. No edema, no cyanosis or clubbing. Skin: No jaundice, no pallor, no rashes on visible skin. Const: Vital Signs, click to edit/add: Vital Signs - 24 hr 05/02/24 12:01 05/02/24 13:28 05/02/24 13:57 Temperature 97.6 F Pulse Rate 64 56 L 51 L Respiratory Rate 16 16 16 Blood Pressure 140/75 H 136/81 139/82 Pulse Oximetry 94 96 97 Oxygen Delivery Me thod Room Air Room Air Nasal Cannula Oxygen Flow Rate 3 05/02/24 14:00 05/02/24 18:35 05/02/24 18:40 Temperature 97.2 F L Pulse Rate 52 L 52 L 50 L Respiratory Rate 16 12 12 Blood Pressure 129/89 130/92 H 137/90 H Pulse Oximetry 98 92 94 Oxygen Delivery Me thod Nasal Cannula Room Air Room Air Oxygen Flow Rate 3 05/02/24 18:45 05/02/24 18:50 05/02/24 18:55 Temperature Pulse Rate 55 L 50 L 52 L Respiratory Rate 12 12 12 Blood Pressure 149/100 H 118/91 H 138/85 Pulse Oximetry 100 98 99 Oxygen Delivery Me thod Nasal Cannula Nasal Cannula Nasal Cannula Oxygen Flow Rate 3 3 3 05/02/24 19:00 05/02/24 19:05 05/02/24 19:10 Temperature 97 F L Pulse Rate 50 L 47 L 41 L Respiratory Rate 12 12 12 Blood Pressure 151/102 H 148/93 H 151/91 H Pulse Oximetry 100 97 98 Oxygen Delivery Me thod Nasal Cannula Nasal Cannula Nasal Cannula Oxygen Flow Rate 2 2 2 Assessment and Plan Assessment and plan (1) Status post total left knee replacement: Problem comment: - 05/02/24 Coleen Status: Acute Assessment and Plan: - Routine post op cares - VTE prophylaxis: Aspirin BID (2) Diastolic dysfunction: Problem comment: 2014 diastolic dysfunction was found on an echocardiogram done for exertional dyspnea. Patient was treated with low-dose furosemide for short time which improved this symptom. He has not been on furosemide for years. Status: Chronic Assessment and Plan: - chronic diastolic heart failure, no acute exacerbation at present - Monitor for volume overload (3) Hyperlipidemia: Problem comment: - diet controlled Status: Chronic
[2024-05-02] MEDS: HYDROmorphone 0.5 mg/0.5 ml inj IVP ×2 (20:02→23:36)
[2024-05-02] MEDS: HYDROmorphone 2 MG TABLET PO (21:02)
[2024-05-02] MEDS: ASPIRIN 81 MG TABLET EC PO (21:03)
[2024-05-02] MEDS: SENNOSIDES 1 TAB TABLET 2 TAB PO (21:03)
--- NOTE | 2024-05-02 22:43 | PC.NURSE ---
Patient arrived to the floor post-op around 1900. Alert and oriented upon arrival. Pain in knee and worsening during initial assessment. PRN pain medications administerd for pain management. Patient tolerating ice chip, water and food. No reports of nausea. Vitally stable and ice applied to left knee. IV fluids still running as patient unable to void yet. Nursing to continue to monitor.
[2024-05-02] MEDS: CEFAZOLIN 3 GM in 0.9 % SODIUM CHLORIDE Mini-bag 100 ML IVPB (23:33)
[2024-05-03 00:51] VITALS: BP 133/73; PULSE 59; RESP 16; TEMP 36.4; O2SAT 96
[2024-05-03] MEDS: HYDROmorphone 0.5 mg/0.5 ml inj IVP ×3 (01:22→05:33)
[2024-05-03 02:27] VITALS: TEMP 36.4
[2024-05-03] MEDS: HYDROmorphone 2 MG TABLET PO ×2 (02:27→08:47)
[2024-05-03] MEDS: ACETAMINOPHEN 500 MG TABLET 1000 MG PO ×2 (02:27→08:47)
[2024-05-03 02:31] VITALS: BP 134/83; PULSE 62; RESP 16; TEMP 36.6; O2SAT 95
--- NOTE | 2024-05-03 03:35 | PC.NURSE ---
Pt came to floor evening. Afebrile. No N/V. Tolerating regular diet. Up to BR and voiding. Pain controlled with Dilaudid. Pt does not have Oxy on board. VSS.
[2024-05-03 06:58] LABS: Basophils Percent Auto 0.3 % (0.0-3.0); Eosinophils Percent Auto 0.5 % (0.0-7.0); Hemoglobin* 12.3 gm/dL (13.5-17.5); Immature Granulocytes Pct Auto 0.3 %; Mean Corpuscular HGB Conc 33 gm/dL (32-36); Mean Corpuscular Hemoglobin 29 pg (26-34); Mean Corpuscular Volume 87 fL (80-100); Monocytes Percent Auto 8.6 % (0.0-11.0); Neutrophils Percent Auto 78.3 % (42.0-72.0); Platelet Count* 249 K/uL (140-440); RDW Coefficient of Variation % 13.8 % (11.5-15.5); Red Blood Count* 4.26 m/uL (4.30-5.90); White Blood Count* 11.09 K/uL (4.50-11.00)
[2024-05-03 07:00] VITALS: BP 131/79; PULSE 60; RESP 16; TEMP 37.2; O2SAT 93
[2024-05-03 07:07] LABS: Slide Review Reflex No
[2024-05-03 07:16] LABS: Sodium* 135 mmol/L (135-149)
[2024-05-03 07:17] LABS: Potassium* 4.6 mmol/L (3.6-5.1)
[2024-05-03 07:19] LABS: Blood Urea Nitrogen* 20 mg/dL (7-30); Creatinine* 1.1 mg/dL (0.5-1.5); Est. Creatinine Clearance* 68.45; Estimated Glomerular Filt Rate 73 ml/min
[2024-05-03 07:29] LABS: INR 1.15 (0.91-1.10); Prothrombin Time 15.6 Seconds
[2024-05-03] MEDS: CEFAZOLIN 3 GM in 0.9 % SODIUM CHLORIDE Mini-bag 100 ML IVPB (07:41)
[2024-05-03] MEDS: ONDANSETRON 2 MG/ML inj 4 MG IVP (08:47)
[2024-05-03] MEDS: SENNOSIDES 1 TAB TABLET 2 TAB PO (08:50)
[2024-05-03] MEDS: ASPIRIN 81 MG TABLET EC PO (08:50)
--- NOTE | 2024-05-03 09:18 | PM.ORPN ---
Subjective Subjective Time Seen by Provider: 08:00 Date Seen: 05/03/24 Principal diagnosis: Status post left knee replacement Interval history: Ben is accompanied by his Staci this morning. He tried to have breakfast this morning, however has some nausea. He also feels sleepy. He is in the recliner and requesting to get back into bed. He will have nursing help him. He has pain in the knee and difficulty bending it he states. Ortho Exam Narrative Exam Narrative: Alert and oriented x3. Patient is in no acute distress. Converses without labored breathing. Hearing is grossly intact. Ambulates with a walker. He feels nausea while trying to have breakfast. He did not eat any breakfast, however Wells upon his coffee and water. Examination of the left knee shows the dressing is intact. No erythema or warmth or sign of infection. Mild soft tissue edema. Calves are soft and nontender. CMS is intact left lower extremity. Const Vital Signs, click to edit/add: Vital Signs - 24 hr 05/02/24 12:01 05/02/24 13:28 05/02/24 13:57 Temperature 97.6 F Pulse Rate 64 56 L 51 L Pulse Rate [Right Pulse Oximeter] Respiratory Rate 16 16 16 Blood Pressure 140/75 H 136/81 139/82 Blood Pressure [Left Arm] Pulse Oximetry 94 96 97 Oxygen Delivery Method Room Air Room Air Nasal Cannula Oxygen Flow Rate 3 05/02/24 14:00 05/02/24 18:35 05/02/24 18:40 Temperature 97.2 F L Pulse Rate 52 L 52 L 50 L Pulse Rate [Right Pulse Oximeter] Respiratory Rate 16 12 12 Blood Pressure 129/89 130/92 H 137/90 H Blood Pressure [Left Arm] Pulse Oximetry 98 92 94 Oxygen Delivery Method Nasal Cannula Room Air Room Air Oxygen Flow Rate 3 05/02/24 18:45 05/02/24 18:50 05/02/24 18:55 Temperature Pulse Rate 55 L 50 L 52 L Pulse Rate [Right Pulse Oximeter] Respiratory Rate 12 12 12 Blood Pressure 149/100 H 118/91 H 138/85 Blood Pressure [Left Arm] Pulse Oximetry 100 98 99 Oxygen Delivery Method Nasal Cannula Nasal Cannula Nasal Cannula Oxygen Flow Rate 3 3 3 05/02/24 19:00 05/02/24 19:05 05/02/24 19:10 Temperature 97 F L Pulse Rate 50 L 47 L 41 L Pulse Rate [Right Pulse Oximeter] Respiratory Rate 12 12 12 Blood Pressure 151/102 H 148/93 H 151/91 H Blood Pressure [Left Arm] Pulse Oximetry 100 97 98 Oxygen Delivery Method Nasal Cannula Nasal Cannula Nasal Cannula Oxygen Flow Rate 2 2 2 05/02/24 19:19 05/02/24 19:30 05/02/24 19:45 Temperature 96.2 F L 96.1 F L 97.1 F L Pulse Rate 49 L 52 L 52 L Pulse Rate [Right Pulse Oximeter] Respiratory Rate 16 16 18 Blood Pressure 160/98 H 148/95 H 148/91 H Blood Pressure [Left Arm] Pulse Oximetry 95 92 93 Oxygen Delivery Method Room Air Room Air Room Air Oxygen Flow Rate 05/02/24 20:00 05/02/24 20:15 05/02/24 20:30 Temperature 96.3 F L Pulse Rate 50 L 53 L 54 L Pulse Rate [Right Pulse Oximeter] Respiratory Rate 18 18 16 Blood Pressure 157/91 H 155/88 H 144/86 H Blood Pressure [Left Arm] Pulse Oximetry 95 92 95 Oxygen Delivery Method Room Air Room Air Room Air Oxygen Flow Rate 05/02/24 21:00 05/02/24 22:00 05/02/24 22:55 Temperature 96.4 F L 96.7 F L 96.8 F L Pulse Rate 59 L 64 63 Pulse Rate [Right Pulse Oximeter] Respiratory Rate 18 16 18 Blood Pressure 147/88 H 120/82 114/68 Blood Pressure [Left Arm] Pulse Oximetry 96 96 95 Oxygen Delivery Method Room Air Room Air Room Air Oxygen Flow Rate 05/02/24 23:16 05/02/24 23:49 05/03/24 00:51 Temperature 97.6 F 97.6 F Pulse Rate 64 59 L Pulse Rate [Right Pulse Oximeter] Respiratory Rate 18 18 16 Blood Pressure 136/81 133/73 Blood Pressure [Left Arm] Pulse Oximetry 95 95 96 Oxygen Delivery Method Room Air Room Air Room Air Oxygen Flow Rate 0 0 0 05/03/24 02:27 05/03/24 02:31 05/03/24 07:00 Temperature 97.6 F 98 F 99 F Pulse Rate Pulse Rate [Right Pulse Oximeter] 62 60 Respiratory Rate 16 16 Blood Pressure Blood Pressure [Left Arm] 134/83 131/79 Pulse Oximetry 95 93 Oxygen Delivery Method Room Air Oxygen Flow Rate Assessment and Plan Assessment and plan (1) Status post total left knee replacement: Problem details: - 05/02/24 Coleen Status: Acute Assessment and Plan: Plan for discharge is today to home if they meet discharge criteria. We discussed that his gut is not ready for food, however he will continue hydration with sips of water. He will ask nursing to assist him back to bed for he is also feeling sleepy. DVT prophylaxis includes aspirin 81 mg twice daily x1 month, Compression stockings as needed for swelling. Frequent ambulation, every hour throughout the day. Remove dressing in 1 week. Observe wound and phone Orthopedics with any questions or concerns Return to clinic in 1 week for a wound check Return to clinic in 6 weeks with surgeon Minimize narcotic use. Wean off and discontinue soon as possible. Activities as tolerated. No strenuous activity. Outpatient physical therapy as scheduled. Ice and elevate the operative extremity. No restriction on ice. We discussed his pain medication. He had dizziness and room spinning with oxycodone after his hip replacement, therefore we will try hydromorphone for home use. He is also taking that here in the hospital. He may not tolerate the hydromorphone either. He has Tylenol on his home list. Aspirin 81 mg, senna, hydromorphone is sent to his pharmacy. We also discussed that if he needs an anti nausea medication, I can send that to his pharmacy as well.
--- NOTE | 2024-05-03 09:57 | REH.OT ---
Attempted to see Don this morning. Reports high pain in the L knee, remains nauseated, does not feel great. Re-applied ice for pt and encouraged gentle moving of B LE in recliner, in preparation for PT who is to return within the half hour. Will return to see pt later this morning as able and tolerated.
--- NOTE | 2024-05-03 12:39 | PC.NURSE ---
Discharge note: Patient left unit at 1230 via wheelchair with . Ambulates SBA/GB/W. Rated pain at 7, below and above his left knee, pain meds offered and given. Tolerating reg diet. Denies SOB. Was feeling nauseated zofran given. IVs removed and tips intact in right and left wrists. Patient belongings sheet and discharge instructions given and signed. 2 Ice packs sent home with patient.
== END 2024-05-03 12:30 | disposition home or self-care (01) ==
LOC: OR 11:11 → MEDSURG 11:11
PROVIDERS: PCP Surgery; Visit Provider Orthopaedic Surgery
PROC: (CPT 27447; principal; 2024-05-02 13:30)
DX: M17.12 Unilateral primary osteoarthritis, left knee (principal); G89.18 Other acute postprocedural pain; I50.32 Chronic diastolic (congestive) heart failure; Z87.891 Personal history of nicotine dependence; E55.9 Vitamin D deficiency, unspecified; E78.5 Hyperlipidemia, unspecified; Z79.82 Long term (current) use of aspirin; R73.9 Hyperglycemia, unspecified; M79.605 Pain in left leg; R09.02 Hypoxemia
CPT/HCPCS: 27447; 01402; 36415; 64447; 64454; 71275; 73560; 76942; 80048; 81001; 82565; 83880; 84132; 84295; 84520; 85025; 85610; 85730; 86140; 87040; 87637; 93005; 93971; 97110; 97116; 97161; 97166; 99291; A9270; C1776; J0665; J0690; J1171; J1644; J2250; J2405; J2704; J3010; J3490; J7030; J7120; Q9967

== ENCOUNTER 2024-05-03 20:20 | Emergency (ER) | payer MEDICARE, BC, SELFPAY ==
[2024-05-03] VITALS (27 sets, daily range): BP systolic 94–130; BP diastolic 53–86; PULSE 82–101; RESP 18; TEMP 37.3; O2SAT 89–95; BMI 39.1
--- OUTSIDE RECORDS SUMMARY | 2024-05-03 20:23 | XMS_ITS | Clinical Summary ---
Author Organization [email or web address] [facility] Address [address] [place] [id number] Care Team Providers Care Cold Roller Name Role Phone Anthony West MD Primary Care Provider [phone] Allergies No known active allergies Medications aspirin (ECOTRIN) 81 mg enteric coated tablet Take 1 tablet by mouth once daily with a meal. 0 5 Active acetaminophen (TYLENOL EXTRA STRGTH) 500 mg tablet Take 1 Tablet (500 mg) by mouth every 6 hours if needed. Max acetaminophen dose: 4000mg in 24 hrs. 0 2 Active Active Problems Problem Noted Date Diagnosed Date Other hyperlipidemia 12/31/2017 Hx of tobacco use 11/22/2014 Benign neoplasm of colon 05/24/2009 Overview (05/28/2009): Colonoscopy 05/2009 lymphoid tissue repeat in 10 years Vitamin D deficiency 05/23/2009 Resolved Problems Problem Noted Date Diagnosed Date Resolved Date Diastolic dysfunction 11/28/20142021 HSU (dyspnea on exertion) 11/22/2014 Encounters Date Type Department Care Team Description 05/02/2024 Orders Only [facility] Scanner 1 scan: (1-Ord) [facility], KNEE LT 2V, 05/02/2024 04/26/2024 Orders Only [facility] [address] [place] [address] Anthony West MD <No scans attached> 04/24/2024 2:15 PM CDT Ancillary Procedure [facility] [address] [facility] [address] [place] [address] 04/24/2024 9:15 AM CDT Ancillary Procedure [facility] [address] [place] [address] 04/24/2024 8:15 AM CDT Office Visit [facility] [address] [place] [address] Anthony West MD Preoperative Exam (Left knee replacement on 05/02/24 [facility] Dr[facility] Horne) 04/24/2024 Travel from Last 3 Months Immunizations Immunization Administration Dates Next Due AMB INFLUENZA, IIV4 (AGE=>6M OS) MDV (Flu Clinic Only) 02/24/2017 COVID-19 vaccine (Get [employer] NTech 30mcg/0.3mL) 12YO+ BIVALENT PF, MDV 12/29/2021 Hepatitis A (Adult) 07/04/2010,05/16/2009 Hepatitis B (Adult) 12/27/2006,10/27/1996,1996 Influenza, IIV3 (Age >=3 years) 11/30/19 14,11/14/2012,10/28/2012,2011 Influenza, IIV4 11/14/2015,12/28/2014 Influenza, IIV4 (=>6mos) MDV 11/16/2019, 11/24/2018,11/25/2017,2016,11/14/2015 Influenza, Inactivated AIIV4 (Age 65+ Years) Preserv Free 12/29/2021 Pneumococcal Poly,23-Valent (Pneumovax) 03/21/2021 Td (Age >=7 Years) 08/09/2003,03/13/1999, 994 Tdap 03/23/2016,12/27/2006 Zoster (Shingrix-RZV, recombinant) 05/16/2021, Family History Medical History Relation Name Comments Diabetes Father older Heart Disease Father Kidney failure Father Stroke Father in his 60s Cancer-colon Maternal Grandfather rectal in 60s Cancer-prostate Maternal Grandfather in h is 70s Good Health Mother DJD---hip repla cement Heart Disease Mother Stent Diabetes Paternal Grandmother Cancer-ovarian Sister Relation Name Status Comments Father Maternal Grandfather Mother Paternal Grandmother Sister Social History Tobacco Use Types Packs/Day Years Used Date Smoking Tobacco: Former Cigarettes Q uit: 03/19/2009 Smokeless Tobacco: Never Tobacco Cessation:Counseling Given: Yes Alcohol Use Standard Drinks/Week Comments Yes 0 (1 standard drink = 0.6 oz pur e alcohol) occ. PHQ-2 Answer Date Recorded PHQ-2 TOTAL SCORE 0 03/21/2021 Social Connections Answer Date Recorded Do you often feel lonely or isolated from those around you? 0 04/24/2024 Financial Resource Strain Answer Date R ecorded Difficulty of Paying Living Expenses 3 04/24/2024 Difficulty of Paying Living Expenses Not on file 04/24/2024 Food Insecurity Answer Date Recorded Do you worry your food will run out before you are able to buy more? 1 04/24/2024 Transportation Needs Answer Date Record ed Does lack of transportation keep you from medica l appointments? 1 04/24/2024 Does lack of transportation keep you from work, meetings or getting things that you need? 1 04/24/2024 Housing Stability Answer Date Recorded What is your housing situation today? 1 04/24/2024 Utilities Answer Date Recorded Do you have trouble paying f or utilities (for example, heat, electricity, water, phone)? 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 file Not on file Not on file Obstetrics History Last Filed Vital Signs Vital Sign Reading Time Taken Comments Blood Pressure 131/81 04/24/2024 8:24 AM CDT Pulse 60 04/24/2024 8:24 AM CDT Temperature 36.6 C (97.8 F) 09/08/2023 9:41 AM CDT Respiratory Rate 20 10/18/2017 6:08 PM CDT Oxygen Saturation 95% 04/24/2024 8:24 AM CDT Inhaled Oxygen Concentration - - Weight 127.9 kg (281 lb 14.4 oz) 04/24/2024 8:24 AM CDT Height 177.8 cm (5' 10) 06/06/2021 9:56 AM CDT Body Mass Index 40.45 06/06/2021 9:56 AM CDT Plan of Treatment Health Maintenance Due Date Last Done Comments RSV vaccine for adults or (1 - Risk 60-74 years 1-dose series) 2016 Medicare Wellness for age 65+ 02/06/2021 Depression screening for age 12+ 03/21/2022 03/21/2021, 03/18/2018, 03/29/2017 Pneumococcal series for age 50+ (2 of 2 - PCV) 03/21/2022 03/21/2021 BMI (ht and wt on same day) for age 18+ 06/06/2022 06/06/2021, 03/21/2021, 10/30/2020, Additional history exists COVID-19 vaccine series ( season) 2023 12/29/2021, 01/15/2021, 06/05/2020, Additional history exists Influenza Vaccine (#1) 2023 , 11/16/2019, 11/24/2018, Additional history exists Tetanus booster 03/23/2026 03/23/2016, 12/16, 08/09/2003, Additional history exists Lipids for age 45-75 04/24/2029 04/24/2024, 03/21/2021, 03/21/2021, Additional history exists Colonoscopy through age 75 05/15/203005/15, 05/15/2020, 05/24/2009, Additional history exists Tdap Completed 03/23/2016, 12/27/2006 AAA screening age 65-74 Completed 03/21/2021 Hepatitis C screening for ag e 18-79 Completed 03/21/2021 Zoster (shingles) series for age 50+ Completed 05/16/2021, 03/21/2021 Procedures Procedure Name Priority Date/Time Associated Diagnosis Comments SCAN-RADIOLOGY REPORT 05/02/2024 12:00 AM CDT EKG 12 LEAD Routine 04/24/2024 3:46 PM CDT HSU (dyspnea on exertion) [place] READING EKG - NO CHARGE, COMP ONLY Routine 04/24/2024 3:44 PM CDT HSU (dyspnea on exertion) CT CARDIAC CALCIUM SCORE ONLY WO SINGLE READ Routine 04/24/2024 2:24 PM CDT Other hyperlipidemia XR CHEST 2 VIEWS PA AND LATERAL Routine 04/24/2024 10:29 AM CDT HSU (dyspnea on exertion) PATH TISSUE EXAM Routine 04/24/2024 10:0 6 AM CDT Skin lesion LIPID PANEL Routine 04/24/2024 9:11 AM CDT Screening, lipid PSA TOTAL Routine 04/24/2024 9:11 AM CDT Screening for prostate cancer HEMOGLOBIN A1C Routine 04/24/2024 9:11 AM CDT Elevated blood sugar BASIC METABOLIC PANEL Routine 04/24/2024 9:11 AM CDT HSU (dyspnea on exertion) CBC W PLT NO DIFF Routine 04/24/2024 9:1 1 AM CDT HSU (dyspnea on exertion) AST (SGOT) Add On 04/24/2024 12:00 AM CDT Other hyperlipidemia US ABD AORTA SCREENING Routine 03/21/2021 11:25 AM LEATHER FLESHER Screening for AAA (aortic abdominal aneurysm) ANTI HCV Routine 03/21/2021 10:23 AM LEATHER FLESHER Need for hepatitis C screening test COLONOSCOPY SCREENING Routine 05/15/2020 7:55 AM CDT Screening for colon cancer from Last 3 Months or Most Recently Relevant to Health Maintenance Results * SCAN-RADIOLOGY REPORT (05/02/2024 12:00 AM CDT) Anatomical Region Laterality Modality Other us Scanner OTHER Final Result * EKG 12 LEAD (04/24/2024 3:46 PM CDT) Anthony West MD EKG ORD Final Resu lt * [place] READING EKG - NO CHARGE, COMP ONLY (04/24/2024 3:44 PM CDT) Anthony West MD PB - PROVIDER READINGS Fin al Result * CT CARDIAC CALCIUM SCORE ONLY WO SINGLE READ (04/24/2024 2:24 PM CDT) Anatomical Region Laterality Modality Computed Tomogra phy 04/24/2024 6:58 PM CDT Narrative 04/24/2024 6:58 PM CDT For Patients: As a result of the Century Cures Act, medical imaging exams and procedure reports are released immediately into your electronic medical record. You may view this report before your referring provider. If you have questions, please contact your health care provider. CT CARDIAC CALCIUM SCORING PATIENT HISTORY: Screening for coronary artery disease Screening for coronary artery disease REPORT: High-resolution, ECG-synchronized noncontrast computed tomography of the heart with attention to the coronary arteries was performed. Coronary calcification analyzed using Siemens calcium scoring software. These are the results of the evaluation: CT Calcium Scoring: This cardiac CT examination will provide you with a coronary artery calcium score. A coronary artery calcium score is a measurement of the amount of calcified plaque in the coronary arteries, the arteries that supply blood to the heart muscle. The coronary artery calcium score is calculated based on the number, size, and density of the calcified plaques in the coronary arteries. The amount of calcified coronary plaque has been shown to directly correlate with future risk for heart disease. The coronary artery calcium is a marker of how much plaque has accumulated in the eaton of the coronary arteries. It is not a test for blockages. This test is intended to assess cardiovascular risk in patients without symptoms. It is not intended to be a test for individuals with chest pain or other possible symptoms suggestive of heart disease. If you are having chest pain or other potential cardiovascular symptoms, see your physician. Calcium Score: Left main = 0 Left anterior descending = 19 Left circumflex = 1 Right coronary artery = 0 Total calcium score = 20 [address] places the patient at the 20 percentile for matched age and gender. Assessment: - Your cardiac CT examination demonstrates plaque in the coronary arteries. - The amount of plaque in the coronary arteries directly correlates with the risk for heart attack and other coronary events (such as bypass or stenting). - As discussed above, the coronary artery calcium score is intended for risk assessment in patients without cardiovascular symptoms. If you are having chest pain or other potential cardiovascular symptoms, see your physician. Recommendations: - To lower your cardiovascular risk, we strongly recommend adherence to healthy lifestyle behaviors including: - Following a heart healthy diet focused on modest portion sizes, a high intake of fresh fruits and vegetables, whole grains, healthy fats (olive oil, nuts and seeds, avocados), and healthy proteins (unprocessed meats, fish, legumes). - Following an active lifestyle including 30-45 minutes of moderate intensity exercise 5-6 times per week. - Avoidance of tobacco products. - Cardiovascular preventive medication, including a daily aspirin and cholesterol-lowering statin medications have been shown to reduce the risk of a future heart attack and stroke, especially in individuals at higher risk for heart disease. - We recommend that individuals with calcified plaque discuss the risks and benefits of cholesterol-lowering medications, blood pressure medications, and aspirin with their primary care physician. Cholesterol-lowering medications have been shown to reduce the risk of heart attack in individuals at elevated risk, including in patients with n ormal cholesterol levels at baseline. - A coronary artery calcium score is not a test for blockages, it is a test for underlying plaque. An elevated calcium score is not an indication for additional testing for coronary heart disease though one may be considered based on your clinical history. The results of your coronary artery calcium score should be reviewed by your primary care provider or fish cake maker. - These recommendations are generalized and may not specifically apply to you as an individual. Your primary care physician is in the best position to provide advice on your care and clinical decisions should ultimately be made by you and your physician. EXTRACARDIAC FINDINGS: No acute or suspicious imaging abnormalities of the extracardiac structures. Please note that all CT scans at this facility use dose modulation, iterative reconstruction, and/or weight-based dosing when appropriate to reduce radiation dose to as low as reasonably achievable. Dictated by Carlo Arias MD @ 04/24/2024 6:58:19 PM (Electronically Signed) Procedure Note Carlo Arias MD - 04/24/2024 For Patients: As a result of the Cures Act, medical imagingexams and procedure reports are released immediately into your electronicmedical record. You may view this report before your referring provider.If you have questions, please contact your health care provider. CT CARDIAC CALCIUM SCORING PATIENT HISTORY: Screening for coronary artery disease Screening forcoronary artery disease REPORT: High-resolution, ECG-synchronized noncontrast computed tomographyof the heart with attention to the coronary arteries was performed. Coronary calcification analyzed using Siemens calcium scoring software.These are the results of the evaluation: CT Calcium Scoring: This cardiac CT examination will provide you with acoronary artery calcium score. A coronary artery calcium score is ameasurement of the amount of calcified plaque in the coronary arteries,the arteries that supply blood to the heart muscle. The coronary arterycalcium score is calculated based on the number, size, and density of thecalcified plaques in the coronary arteries. The amount of calcifiedcoronary plaque has been shown to directly correlate with future risk forheart disease. The coronary artery calcium is a marker of how much plaque has accumulatedin the eaton of the coronary arteries. It is not a test for blockages.This test is intended to assess cardiovascular risk in patients withoutsymptoms. It is not intended to be a test for individuals with chest painor other possible symptoms suggestive of heart disease. If you are havingchest pain or other potential cardiovascular symptoms, see yourphysician. Calcium Score: Left main = 0 Left anterior descending = 19 Left circumflex = 1 Right coronary artery = 0 Total calcium score = 20 This places the patient at the 20 percentile for matched age and gender. Assessment: - Your cardiac CT examination demonstrates plaque in the coronaryarteries. - The amount of plaque in the coronary arteries directly correlates withthe risk for heart attack and other coronary events (such as bypass orstenting). - As discussed above, the coronary artery calcium score is intended forrisk assessment in patients without cardiovascular symptoms. If you arehaving chest pain or other potential cardiovascular symptoms, see yourphysician. Recommendations: - To lower your cardiovascular risk, we strongly recommend adherence tohealthy lifestyle behaviors including: - Following a heart healthy diet focused on modest portion sizes, a highintake of fresh fruits and vegetables, whole grains, healthy fats (oliveoil, nuts and seeds, avocados), and healthy proteins (unprocessed meats,fish, legumes). - Following an active lifestyle including 30-45 minutes of moderateintensity exercise 5-6 times per week. - Avoidance of tobacco products. - Cardiovascular preventive medication, including a daily aspirin andcholesterol-lowering statin medications have been shown to reduce the riskof a future heart attack and stroke, especially in individuals at higherrisk for heart disease. - We recommend that individuals with calcified plaque discuss the risksand benefits of cholesterol-lowering medications, blood pressuremedications, and aspirin with their primary care physician.Cholesterol-lowering medications have been shown to reduce the risk ofheart attack in individuals at elevated risk, including in patients with n ormal cholesterol levels at baseline. - A coronary artery calcium score is not a test for blockages, it is atest for underlying plaque. An elevated calcium score is not an indicationfor additional testing for coronary heart disease though one may beconsidered based on your clinical history. The results of your coronaryartery calcium score should be reviewed by your primary care provider orcardiologist. - These recommendations are generalized and may not specifically apply toyou as an individual. Your primary care physician is in the best positionto provide advice on your care and clinical decisions should ultimately bemade by you and your physician. EXTRACARDIAC FINDINGS: No acute or suspicious imaging abnormalities of theextracardiac structures. Please note that all CT scans at this facility use dose modulation,iterative reconstruction, and/or weight-based dosing when appropriate toreduce radiation dose to as low as reasonably achievable. Dictated by Carlo Arias MD @ 04/24/2024 6:58:19 PM (Electronically Signed) us Anthony West MD CT Final Resu lt * XR CHEST 2 VIEWS PA AND LATERAL (04/24/2024 10:29 AM CDT) Anatomical Region Laterality Modality CHEST, THORAX, Lung, HEART Compu patsy Radiography 04/24/2024 3:29 PM CDT Impressions 04/24/2024 3:29 PM CDT No acute findings. Dictated by Clemente Mayfield MD @ 04/24/2024 3:29:06 PM (Electronically Signed) Narrative 04/24/2024 3:29 PM CDT For Patients: As a result of the Century Cures Act, medical imaging exams and procedure reports are released immediately into your electronic medical record. You may view this report before your referring provider. If you have questions, please contact your health care provider. INDICATION: HSU (dyspnea on exertion) TECHNIQUE: Chest 2 views COMPARISON: 09/17/2014 FINDINGS: Cardiovascular and mediastinum: Heart size and vasculature are normal in caliber and appearance. Vascular calcifications. Lungs and pleural spaces: Lungs are clear. No sign of infiltrate or mass. No sign of pleural effusion. No pneumothorax. Bones and soft tissues: No significant findings. Procedure Note Clemente Mayfield MD - 04/24/2024 For Patients: As a result of the Cures Act, medical imagingexams and procedure reports are released immediately into your electronicmedical record. You may view this report before your referring provider.If you have questions, please contact your health care provider. INDICATION: HSU (dyspnea on exertion) TECHNIQUE: Chest 2 views COMPARISON: 09/17/2014 FINDINGS: Cardiovascular and mediastinum: Heart size and vasculature are normal incaliber and appearance. Vascular calcifications. Lungs and pleural spaces: Lungs are clear. No sign of infiltrate ormass. No sign of pleural effusion. No pneumothorax. Bones and soft tissues: No significant findings. IMPRESSION: No acute findings. Dictated by Clemente Mayfield MD @ 04/24/2024 3:29:06 PM (Electronically Signed) us Anthony West MD GENERAL IMAGING Final Resu lt * PATH TISSUE EXAM (04/24/2024 10:06 AM CDT) Case Report Pathology Report Case: [id number] Authorizing Provider: Anthony West MD Collected: 04/24/2024 1006 Ordering Location: [facility] Received: 04/25/2024 0745 Clinic Pathologist: Pranav Parks MD Specimen: Right Shoulder 04/28/2024 3:20 PM CDT [facility] Final Diagnosis A) SKIN, RIGHT SHOULDER, BIOPSY: 1. Inflamed seborrheic keratosis 2. No evidence of malignancy 04/28/2024 3:20 PM CDT [facility] [place] ENTRAL LABORATORY at 1520 CDT Clinical Information Skin lesion on the right shoulder. 04/28/2024 3:20 PM CDT [facility] [place] ENTR[facility]ATORY Gross Description A) Received in formalin, labeled with the patient's name and date of , are 2 skin biopsies measuring 0.8 x 0.7 x 0.1 cm and 0.3 x 0.2 x 0.1 cm. The skin surfaces are flat, crusted and anguiano. The specimen is differentially inked red and yellow and entirely submitted as follows: 1. Larger fragment, inked yellow, trisected 2. Smaller fragment, inked red, left intact TLF 04/26/2024 04/28/2024 3:20 PM CDT [facility] [place] Microscopic Description The final diagnosis is based on microscopic examination of appropriate sections of all specimens. A) There is a proliferation of basaloid epidermal cells with hyperkeratosis, no significant atypia, and no invasion. There is associated chronic inflammation. The presence of yellow and red ink is confirmed on tissue sections. 04/28/2024 3:20 PM CDT [facility] [place] Additional Information Interpreted at [facility] - [address] [place] [address]. [facility] [address] [address] 04/28/2024 3:20 PM CDT [facility] Other (Right Shoulder) Non-Blood / Unknown 04/24/2024 10:06 AM CDT 04/25/2024 7:45 AM CDT Anthony West MD PATHOLOGY/CYTOLOGY Final R esult [facility] [address] [place] [address], * (ABNORMAL) HEMOGLOBIN A1C (04/24/2024 9:11 AM CDT) HEMOGLOBIN A1C 5.9(H) <5.7 % of total Hgb [facility] Comment: For someone without known diabetes, a hemoglobin A1c value between 5.7% and 6.4% is consistent with prediabetes and should be confirmed with a follow-up test. For someone with known diabetes, a value <7% indicates that their diabetes is well controlled. A1c targets should be individualized based on duration of diabetes, age, comorbid conditions, and other considerations. This assay result is consistent with an increased risk of diabetes. Currently, no consensus exists regarding use of hemoglobin A1c for diagnosis of diabetes for children. Blood BLOOD SPECIMEN / Unknown 04/24/2024 9:11 AM CDT 04/24/2024 9:13 AM CDT Narrative [facility] - 04/25/2024 4:28 AM CDT FASTING:YES FASTING: YES us Anthony West MD CHEMISTRY Final Resu lt [email or web address] [facility] [address] [place] [address], [facility] [address] [place] [address] * CBC W PLT NO DIFF (04/24/2024 9:11 AM CDT) [facility] WHITE BLOOD CELL COUNT 6.6 3.8 - 10.8 Thousand/u L [facility] RED BLOOD CELL COUNT 4.95 4.20 - 5.80 Million/uL [facility] HEMOGLOBIN 13.9 13.2 - 17.1 g/dL [facility] HEMATOCRIT 42.2 38.5 - 50.0 % [facility] MCV 85.3 80.0 - 100.0 fL [facility] MCH 28.1 27.0 - 33.0 pg [facility] MCHC 32.9 32.0 - 36.0 g/dL [facility] Comment: For adults, a slight decrease in the calculated MCHC value (in the range of 30 to 32 g/dL) is most likely not clinically significant; however, it should be interpreted with caution in correlation with other red cell parameters and the patient's clinical condition. RDW 13.6 11.0 - 15.0 % [facility] PLATELET COUNT 286 140 - 400 Thousand/u L [facility] MPV 11.3 7.5 - 12.5 fL [facility] Blood BLOOD SPECIMEN / Unknown 04/24/2024 9:11 AM CDT 04/24/2024 9:13 AM CDT Narrative [facility] - 04/25/2024 3:43 AM CDT FASTING:YES FASTING: YES Anthony West MD HEMATOLOGY Final Resu lt [facility] [address] [place] [address], [place] [phone] [facility] [address] [place] [address] * PSA TOTAL (DIAG OR SCREEN) (04/24/2024 9:11 AM CDT) Pathologist [facility] PSA, TOTAL 0.87 < OR = 4.00 ng/mL [facility] Comment: The total PSA value from this assay system is standardized against the WHO standard. The test result will be approximately 20% lower when compared to the equimolar-standardized total PSA ([place]). Comparison of serial PSA results should be interpreted with this fact in mind. This test was performed using the Siemens chemiluminescent method. Values obtained from different assay methods cannot be used interchangeably. PSA levels, regardless of value, should not be interpreted as absolute evidence of the presence or absence of disease. Blood BLOOD SPECIMEN / Unknown 04/24/2024 9:11 AM CDT 04/24/2024 9:13 AM CDT Narrative [facility] 04/25/2024 5:23 AM CDT FASTING:YES FASTING: YES Anthony West MD CHEMISTRY Final Resu lt [facility] [address] [place] [address], [place] [phone] [facility] [address] [place] [address] * (ABNORMAL) LIPID PANEL (04/24/2024 9:11 AM CDT) CHOLESTEROL, TOTAL 173 <200 mg/dL [facility] HDL CHOLESTEROL 45 > OR = 40 mg/dL [facility] TRIGLYCERIDES 151(H) <150 mg/dL [facility] LDL-CHOLESTEROL 103(H) mg/dL (calc) [facility] Comment: Reference range: <100 Desirable range <100 mg/dL for primary prevention; <70 mg/dL for patients with CHD or diabetic patients with > or = 2 CHD risk factors. LDL-C is now calculated using the Flash calculation, which is a validated novel method providing better accuracy than the Friedewald equation in the estimation of LDL-C. Jarvis SS et al. ANABELLA. 2013;310(19): 0617-5699 (http://education.[employer]/faq/QAH878) CHOL/HDLC RATIO 3.8 <5.0 (calc) [facility] NON HDL CHOLESTEROL 128 <130 mg/dL (calc) [employer] [facility] Comment: For patients with diabetes plus 1 major ASCVD risk factor, treating to a non-HDL-C goal of <100 mg/dL (LDL-C of <70 mg/dL) is considered a therapeutic option. Blood BLOOD SPECIMEN / Unknown 04/24/2024 9:11 AM CDT 04/24/2024 9:13 AM CDT Narrative [facility] - 04/25/2024 3:31 AM CDT FASTING:YES FASTING: YES Anthony West MD CHEMISTRY Final Resu lt [email or web address] [facility] [address] [place] [address], [facility] [address] [place] [address] * (ABNORMAL) BASIC METABOLIC PANEL (04/24/2024 9:11 AM CDT) GLUCOSE 108(H) 65 - 99 mg/dL [employer] [facility] [place] Comment: Fasting reference interval For someone without known diabetes, a glucose value between 100 and 125 mg/dL is consistent with prediabetes and should be confirmed with a follow-up test. UREA NITROGEN (BUN) 20 7 - 25 mg/dL [facility] CREATININE 1.03 0.70 - 1.35 mg/dL [facility] EGFR 79 > OR = 60 mL/min/1. 73m2 [facility] BUN/CREATININE RATIO SEE NOTE: 6 - 22 (calc) [facility] Comment: Not Reported: BUN and Creatinine are within reference range. SODIUM 139 135 - 146 mmol/L [facility] POTASSIUM 4.5 3.5 - 5.3 mmol/L [facility] CHLORIDE 104 98 - 110 mmol/L [facility] CARBON DIOXIDE 26 20 - 32 mmol/L [facility] ELECTROLYTE BALANCE 9 7 - 17 mmol/L (calc) [facility] CALCIUM 9.1 8.6 - 10.3 mg/dL [facility] Blood BLOOD SPECIMEN / Unknown 04/24/2024 9:11 AM CDT 04/24/2024 9:13 AM CDT Narrative [facility] - 04/25/2024 3:31 AM CDT FASTING:YES FASTING: YES Anthony West MD CHEMISTRY Final Resu lt Performing Organization Address [facility]/State/ZIP Co de Phone Number [facility] [address] [place] [address], [facility] [address] [place] [address] * AST (SGOT) (04/24/2024 12:00 AM CDT) AST 16 10 - 35 U/L [facility] Blood BLOOD SPECIMEN / Unknown 04/24/2024 04/26/2024 6:47 PM CDT Anthony West MD CHEMISTRY Final Resu lt [facility] [address] [place] [address], [facility] [address] [place] [address] * US ABD AORTA SCREENING [[id number]] (03/21/2021 11:25 AM LEATHER FLESHER) Anatomical Region Laterality Modality Abdomen, AORTA Ultrasound 03/21/2021 1:48 PM [facility]ATHER FLESHER Impressions 03/21/2021 1:48 PM LEATHER FLESHER No evidence of abdominal aortic aneurysm. Dictated by Clemente Mayfield MD @ Mar 21 2021 1:48PM (Electronically Signed) Narrative 03/21/2021 1:48 PM LEATHER FLESHER For Patients: As a result of the Cures Act, medical imaging exams and procedure reports are released immediately into your electronic medical record. You may view this report before your referring provider. If you have questions, please contact your health care provider. INDICATION: Screening for AAA (abdominal aortic aneurysm) COMPARISON: none TECHNIQUE: Fitzpatrick scale and color Doppler images were acquired of the abdominal aorta and iliac arteries. FINDINGS: Sonographic imaging demonstrates mild atherosclerotic changes. Proximally, the aorta measures 2.9 x 2.9 cm in diameter, mid 2.6 x 2.8 cm, and distally tapers to a measurement of 2.3 x 2.5 cm. The common iliac arteries are patent and measure 1.6 x 1.2 cm on the right and 1.6 x 1.3 cm in diameter on the left. There are no suspicious periaortic masses. Procedure Note Clemente Mayfield MD - 03/21/2021 For Patients: As a result of the Cures Act, medical imagingexams and procedure reports are released immediately into your electronicmedical record. You may view this report before your referring provider.If you have questions, please contact your health care provider. INDICATION: Screening for AAA (abdominal aortic aneurysm) COMPARISON: none TECHNIQUE: Fitzpatrick scale and color Doppler images were acquired of the abdominal aortaand iliac arteries. FINDINGS: Sonographic imaging demonstrates mild atherosclerotic changes. Proximally,the aorta measures 2.9 x 2.9 cm in diameter, mid 2.6 x 2.8 cm, anddistally tapers to a measurement of 2.3 x 2.5 cm. The common iliacarteries are patent and measure 1.6 x 1.2 cm on the right and 1.6 x 1.3 cmin diameter on the left. There are no suspicious periaortic masses. IMPRESSION: No evidence of abdominal aortic aneurysm. Dictated by Clemente Mayfield MD @ Mar 21 2021 1:48PM (Electronically Signed) Anthony West MD Final Resu lt * ANTI HCV (03/21/2021 10:23 AM LEATHER FLESHER) HEPATITIS C ANTIBODY Non-React ricardo Non-React ricardo 03/21/2021 6:35 PM [facility] Comment:Antibodies to HCV no t detected; does not exclude the possibility of exposure to HCV. Blood BLOOD SPECIMEN / Unknown Venipuncture / Unknown 03/21/2021 10:23 AM LEATHER FLESHER 03/21/2021 10:23 AM LEATHER FLESHER us Anthony West MD SEND OUTS Final Resu lt [facility] [address] [place] [address], [place] * COLONOSCOPY (05/15/2020 7:27 AM CDT) 05/15/2020 7:27 AM CDT Narrative Transcriptions Jarvis Singleton MD - 05/15/2020 9:16 AM CDT Patient Name: Israel Murray Procedure Date: 05/15/2020 Gender: Male Date of : 1955 Admit Type: Outpatient Procedure: Colonoscopy Proceduralist: Jarvis Singleton MD , Whitney Broussard (Nurse) Referring MD: Estevan Hoyt Indications/Pre-Op Diagnosis: Screening for colorectal malignant neoplasm, Last colonoscopy: May 2009 Medications: Fentanyl 100 micrograms IV, Midazolam 2 mgIV, The level of sedation administered wasmoderate Procedure Description: The patient had risks, benefits and alternatives explained to andgave informed consent. The patient had a stable cardiopulmonary status and judged an adequate candidate for conscious sedation. The [id number] was passed through the anus and advanced tothe cecum, identified by appendiceal orifice and ileocecal valve. The colonoscopy was performed without difficulty. The patient toleratedthe procedure well. The quality of the bowel preparation was good. The ileocecal valve, appendiceal orifice, and rectum were photographed. Complications: No immediate complications. Estimated Blood Loss & Specimen: Estimated blood loss: none. Specimen collected - None Findings: The perianal and digital rectal examinations were normal. A few small-mouthed diverticula were found in the sigmoid colon. The exam was otherwise without abnormality on direct and retroflexion views. Impressions/Post-Op Diagnosis: - Diverticulosis in the sigmoid colon. - The examination was otherwise normal on direct and retroflexionviews. - No specimens collected. Recommendation: - Patient has a contact number available for emergencies. The signsand symptoms of potential delayed complications were discussed with the patient. Return to normal activities tomorrow. Written discharge instructions were provided to the patient. - Resume previous diet. - Continue present medications. - Repeat colonoscopy in 10 years for screening purposes. Moderate Sedation: Moderate (conscious) sedation was administered by the endoscopy nurse and supervised by the endoscopist. The following parameters were monitored: oxygen saturation, heart rate, respiratory rate, blood pressure, adequacy of pulmonary ventilation and reponse to care. Please refer to the patient's medical record flowsheets and nursing notes for moderate sedation details. Total physician intraservice time was 23 minutes. Jarvis Singleton MD 05/15/2020 9:16:04 AM This report has been signed electronically. Note Initiated On: 05/15/2020 7:27 AM Procedure Code(s): --- Professional --- 12909, Colonoscopy, flexible; diagnostic, including collection of specimen(s) bybrushing or washing, when performed (separateprocedure) Diagnosis Code(s): --- Professional --- Z12.11, Encounter for screening formalignant neoplasm of colon K57.30, Diverticulosis of large intestine without perforation or abscess withoutbleeding CPT copyright 2019 [employer]. All rights reserved. The codes documented in this report are preliminary and upon basket person reviewmay be revised to meet current compliance requirements. Scope In: 8:49:27 AM Scope Withdrawal Time 0 hours 8 minutes 30 seconds Scope Out: 9:10:48 AM us Jarvis Singleton MD PROCEDURE ORD Final Res ult from Last 3 Months or Most Recently Relevant to Health Maintenance Insurance [employer] [place] [address] WC WORKERS COMP WC WORKERS COMP [facility] * Guarantor: [employer] (FORMALLY [employer]) Account Type Relation to Patient Date of Phone Billing Address [facility]/Kathryn Employer ATTN ROEL ALVAREZ [address] [place] [address] Advance Directives Documents on File Type Date Recorded 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
--- NOTE | 2024-05-03 20:37 | ED.GENADULT ---
HPI - General Adult General Chief complaint: Fever Stated complaint: Post op fever, chills Time Seen by Provider: 05/03/24 20:37 History of Present Illness HPI narrative: POD 1 from L knee replacement by dr shah. pt discharged today at 12, has been nauseated since surgery, poor intake. pt does state started having 101-102 fevers, tenderness in hamstring, chills and increased SOB. ortho PA called and gave heads up stating he wanted to recommend dvt rule out and pneumonia. pt does state he has been much less mobile than he should be today. tylenol at 1700 with baby asa. dilaudid po last at 1445 69-year-old man presenting to the emergency department with concern of fever. Had a left total knee arthroplasty on 05/02/2024. Has been generally fatigued since surgery. Notes himself to feel more short of breath exertion. Apparently measured temperature between 101-102 today. Had increasing pain behind his knee but he keeps noting anterior knee pain around or under his kneecap in particular. Contacted on-call who recommended that presents to the emergency department to be evaluated for DVT and pneumonia. Has not had cough. Is not experiencing any chest pain. Review of records shows reference to diastolic dysfunction on 2014 echocardiogram. History of exertional dyspnea at that time. Sounds like temporary diuretics were given. 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 Related Data Home Medications ?Medication ?Instructions ?Recorded ?Confirmed aspirin 81 mg tablet,delayed 81 mg PO DAILY 05/02/24 05/02/24 release (Adult Aspirin Regimen) Previous Rx's ?Medication ?Instructions ?Recorded acetaminophen 500 mg capsule 500 - 1,000 mg (1 - 2 x 500 mg) PO 01/15/22 Q6H PRN pain #100 caps aspirin 81 mg chewable tablet 81 mg PO BID for DVT prophylaxis 05/02/24 (Aspirin Childrens) 30 days #60 tabs sennosides 8.6 mg tablet (Senna 17.2 mg (2 x 8.6 mg) PO BID PRN 05/02/24 Lax) constipation #100 tabs hydromorphone 2 mg tablet 2 mg PO Q6H PRN pain #28 tabs 05/03/24 Allergies Allergy/AdvReac Type Severity Reaction Status Date / Time oxycodone AdvReac dizzy, Verified 05/03/24 22:26 room spinning Review of Systems Status of ROS: Reports: 6 or more systems reviewed and unremarkable except as noted in History and below [facility] Medical History Vitamin D deficiency ?E55.9 - Vitamin D deficiency, unspecified (ICD-10) Diastolic dysfunction ?I51.89 - Other ill-defined heart diseases (ICD-10) Hyperlipidemia ?E78.5 - Hyperlipidemia, unspecified (ICD-10) Osteoarthritis of hip ?M16.9 - Osteoarthritis of hip, unspecified (ICD-10) Surgical History Status post total left knee replacement ?Z96.652 - Presence of left artificial knee joint (ICD-10) Hx of colonoscopy ?Z98.890 - Other specified postprocedural states (ICD-10) History of back surgery (~2009) ?Z98.890 - Other specified postprocedural states (ICD-10) S/P total left hip arthroplasty (01/15/22) ?Z96.642 - Presence of left artificial hip joint (ICD-10) H/O hernia repair (~2015) ?Z98.890 - Other specified postprocedural states (ICD-10) ?Z87.19 - Personal history of other diseases of the digestive system (ICD-10) S/P arthroscopy of right shoulder (12/30/06) ?Z98.890 - Other specified postprocedural states (ICD-10) S/P right knee arthroscopy (03/07/10) ?Z98.890 - Other specified postprocedural states (ICD-10) S/P left knee arthroscopy (06/21/12) ?Z98.890 - Other specified postprocedural states (ICD-10) Status post carpal tunnel release (01/11/18) ?Z98.890 - Other specified postprocedural states (ICD-10) Family History Father Diabetes High blood pressure Paternal Grandfather Myocardial infarction Sister History of hip replacement Ovarian cancer Brother History of hip replacement Social History Narrative: . 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 Current nonsmoker, quit over 15 years ago. Occasional alcohol use, 1-2 drinks/month. Denies recreational drug use. What is your current living situation?: I presently have a place to live Problems where you live: no known problems In the past 12 months, utilities in danger of being shut off: no In past 12 months, lack of transportation kept you from medical appts, meetings, work, or getting things needed for daily living: no In the past 12 mos, have been you worried that your food would run out before you had money to buy more?: never true In the past 12 mos, the food you bought just didn't last and you didn't have money to buy more?: never true Highest level of school completed/degree received: Associate degree: occupational, technical, vocational program Smoking Status: Former smoker What tobacco products do you use: cigarettes Smoking packs per day: 0.5 Smoking cigarettes per day: 10.0 Years smoked: 20 Smoking pack-years: 10.00 Smoking quit date/years: >15 years ago Do you use any of these nicotine containing products: None Second hand tobacco smoke exposure: No How often do you have a drink containing alcohol: monthly or less Alcohol type: beer and hard liquor How many standard drinks containing alcohol do you have on a typical day: 1 or 2 How often do you have six or more drinks on one occasion: Less than monthly AUDIT-C Alcohol total score: 2 Non-prescribed substance use: denies use Caffeine: Yes (daily coffee) How often does anyone, including family, friends and others, physically hurt you: never How often does anyone, including family, friends and others, insult or talk down to you: never How often does anyone, including family, friends and others, threaten you with harm: never How often does anyone, including family, friends and others, scream or curse at you: never service: No Exam Narrative: Exam Narrative: Very pleasant. Cranial nerves 2-12 intact. Seems a little uncomfortable; restlessly moving his feet/ankles. Lungs appear to be clear. He is not tachypneic nor labored in breathing. Heart in mildly elevated rate with 1/6 holosystolic murmur. Abdomen is overweight and soft. Generally large postop left knee. Bandage in place. Extremely tender to palpation posterior to the knee/geniculate fossa but more so about to the medial biceps femoris tendon. No defect appreciated. Mild pretibial edema left greater than right. Wearing standard crew socks. Const: Vital Signs, click to edit/add: Vital Signs - 24 hr 05/03/24 20:31 05/03/24 20:32 05/03/24 20:33 Temperature 99.1 F Pulse Rate 99 98 Pulse Rate [Pulse Oximeter] 101 H Respiratory Rate 18 Blood Pressure 124/86 Blood Pressure [Ri ght Upper Arm] 124/86 Pulse Oximetry 91 90 91 Oxygen Delivery Me thod Nasal Cannula Nasal Cannula Room Air Oxygen Flow Rate 2 2 05/03/24 20:45 05/03/24 20:45 05/03/24 21:00 Temperature Pulse Rate 95 91 Pulse Rate [Pulse Oximeter] Respiratory Rate Blood Pressure Blood Pressure [Ri ght Upper Arm] Pulse Oximetry 90 90 93 Oxygen Delivery Me thod Nasal Cannula Room Air Nasal Can nula Nasal Cannula Oxygen Flow Rate 2 2 1 05/03/24 21:03 05/03/24 21:15 05/03/24 21:30 Temperature Pulse Rate 93 89 Pulse Rate [Pulse Oximeter] Respiratory Rate Blood Pressure Blood Pressure [Ri ght Upper Arm] Pulse Oximetry 89 92 89 Oxygen Delivery Me thod Nasal Cannula Nasal Cannula Oxygen Flow Rate 1 1 05/03/24 21:41 05/03/24 21:45 05/03/24 21:46 Temperature Pulse Rate 86 86 87 Pulse Rate [Pulse Oximeter] Respiratory Rate Blood Pressure 94/53 L 111/61 Blood Pressure [Ri ght Upper Arm] Pulse Oximetry 91 90 95 Oxygen Delivery Me thod Nasal Cannula Nasal Cannula Nasal Cannula Oxygen Flow Rate 2 2 2 05/03/24 22:00 05/03/24 22:02 05/03/24 22:03 Temperature Pulse Rate 82 86 83 Pulse Rate [Pulse Oximeter] Respiratory Rate Blood Pressure 116/69 Blood Pressure [Ri ght Upper Arm] Pulse Oximetry 93 91 94 Oxygen Delivery Me thod Nasal Cannula Nasal Cannula Nasal Cannula Oxygen Flow Rate 2 2 2 05/03/24 22:25 05/03/24 22:26 05/03/24 22:30 Temperature Pulse Rate 91 90 90 Pulse Rate [Pulse Oximeter] Respiratory Rate Blood Pressure 130/69 Blood Pressure [Ri ght Upper Arm] Pulse Oximetry 92 92 91 Oxygen Delivery Me thod Nasal Cannula Nasal Cannula Nasal Cannula Oxygen Flow Rate 2 2 2 05/03/24 22:32 05/03/24 22:45 05/03/24 23:00 Temperature Pulse Rate 90 87 88 Pulse Rate [Pulse Oximeter] Respiratory Rate Blood Pressure 120/66 Blood Pressure [Ri ght Upper Arm] Pulse Oximetry 91 94 89 Oxygen Delivery Me thod Nasal Cannula Nasal Cannula Nasal Cannula Oxygen Flow Rate 2 2 3 05/03/24 23:02 05/03/24 23:03 05/03/24 23:15 Temperature Pulse Rate 87 89 92 Pulse Rate [Pulse Oximeter] Respiratory Rate Blood Pressure 112/67 Blood Pressure [Ri ght Upper Arm] Pulse Oximetry 90 89 93 Oxygen Delivery Me thod Nasal Cannula Nasal Cannula Nasal Cannula Oxygen Flow Rate 3 3 3 05/03/24 23:30 05/03/24 23:32 05/03/24 23:33 Temperature Pulse Rate 89 91 90 Pulse Rate [Pulse Oximeter] Respiratory Rate Blood Pressure 116/77 Blood Pressure [Ri ght Upper Arm] Pulse Oximetry 93 91 90 Oxygen Delivery Me thod Nasal Cannula Nasal Cannula Nasal Cannula Oxygen Flow Rate 3 3 3 05/03/24 23:45 Temperature Pulse Rate 88 Pulse Rate [Pulse Oximeter] Respiratory Rate Blood Pressure Blood Pressure [Ri ght Upper Arm] Pulse Oximetry 92 Oxygen Delivery Me thod Nasal Cannula Oxygen Flow Rate 3 Documenting provider has reviewed patient's vital signs: yes Course Vital Signs Vital signs: Initial Vital Signs Pulse Rate 99 05/03/24 20:31 Blood Pressure 124/86 05/03/24 20:31 Blood Pressure Mean 98 05/03/24 20:31 Pulse Oximetry 91 05/03/24 20:31 Oxygen Delivery Method Nasal Cannula 05/03/24 20:31 Oxygen Flow Rate 2 05/03/24 20:31 Vital Signs Pulse Rate 99 05/03/24 20:31 Blood Pressure 124/86 05/03/24 20:31 Pulse Oximetry 91 05/03/24 20:31 Oxygen Delivery Method Nasal Cannula 05/03/24 20:31 Oxygen Flow Rate 2 05/03/24 20:31 Temperature 99.1 F 05/03/24 20:33 Pulse Rate 88 05/03/24 23:45 Respiratory Rate 18 05/03/24 20:33 Blood Pressure 116/77 05/03/24 23:32 Pulse Oximetry 92 05/03/24 23:45 Oxygen Delivery Method Nasal Cannula 05/03/24 23:45 Oxygen Flow Rate 3 05/03/24 23:45 Medications Administered Medications: Generic Name Dose Route Start Last Admin Trade Name Freq PRN Reason Stop Dose Admin Heparin Sodium/Dextrose 25,000 unit in 500 mls @ 0 mls/hr 05/03/24 23:15 05/03/24 23:19 Heparin IV 1,500 unit/hr .Q0M FIDENCIO 30 mls/hr Administration Protocol Per Protocol Discontinued Medications Generic Name Dose Route Start Last Admin Trade Name Freq PRN Reason Stop Dose Admin Heparin Sodium (Porcine) 10,000 unit 05/03/24 23:03 05/03/24 23:17 Heparin 5,000 Unit/0.5 Ml Inj IVP 05/03/24 23:04 10,000 unit ONCE ONE Administration Hydromorphone HCl 1 mg 05/03/24 22:00 05/03/24 22:36 Hydromorphone 0.5 Mg/0.5 Ml Inj IVP 05/03/24 22:01 1 mg ONCE ONE Administration Sodium Chloride 500 mls @ 500 mls/hr 05/03/24 20:52 05/03/24 22:30 0.9 % Sodium Chloride 500 Ml IV 05/03/24 21:51 Infused .Q1H ONE Infusion Ondansetron HCl 4 mg 05/03/24 22:00 05/03/24 22:31 Ondansetron 2 Mg/Ml Inj IVP 05/03/24 22:01 4 mg ONCE ONE Administration Medical Decision Making MDM Narrative Medical decision making narrative: I wonder if opiates are contributing to his nausea. Will screen for source of fever of potential infectious etiology with swabs for COVID, influenza, RSV. Requested ultrasound of the left lower extremity looking for DVT. I do not think there is a postop infection in this leg. Chest x-ray as well for potential pneumonia. I do note that oxygen level on arrival is 91% receiving 2 L. possible pulmonary congestion as well? Pending result of lower extremity ultrasound would consider further imaging beyond chest x-ray. Established IV. Did take his own 2 mg tab of Dilaudid. Results of ultrasound were discussed with four slide machine setter. Difficult exam due to discomfort. She reports approximately 5 cm Baptiste's cyst. No DVT appreciated however again limited exam. Indication: Leg pain, hypoxia Technique: DVT ultrasound of the left lower extremity. Grayscale and color Doppler imaging utilized. Duplex/spectral analysis used. Compression and augmentation as clinically warranted. Comparison: None Findings: Some vessels were poorly visualized and some could not be compressed due to patient discomfort and pain. Allowing for this, vessels are grossly compressible without evidence of filling defect to suggest DVT. No superficial thrombosis appreciated. Probable Baptiste`s cyst. Impression: Somewhat limited examination due to patient pain and discomfort resulting in incomplete compression and poor visualization of distal veins. Allowing for this, no overt DVT is appreciated. Chest x-ray independently reviewed by me looks to show some pulmonary congestion. Might need some diuresis? Indication: Postoperative fever and hypoxia. Technique: Chest one view. Comparison: Chest x-ray 04/24/2024. Findings/Impression: Mild pulmonary vascular congestion appears mildly increased compared to the previous chest radiographs. Very mild bilateral perihilar patchy opacification may related to mild vascular congestion or may reflect developing infectious/inflammatory process in the appropriate clinical context. No pleural effusion or pneumothorax. No acute osseous abnormality. Dictated by Donovan Tim MD @ 05/03/2024 9:36:39 PM With continued anterior knee pain in particular, was given a mg of Dilaudid IV. Required increase in oxygen support at this point but also I do not have a clear reason for combination of fever and mild hypoxia. Did request IV contrasted chest PE protocol looking for potential pulmonary emboli. I did review these CT images and then discuss them also with radiologist. Bilateral pulmonary embolus, right greater than left. INDICATION: Pulmonary embolism (PE) suspected. Hypoxia and fever. Recent surgery 05/02/2024. TECHNIQUE: CTA chest PE was acquired with 95 cc Omnipaque 370 IV contrast. Multiplanar reformats performed including axial MIP reconstructions. COMPARISON: Chest x-ray 05/03/2024. FINDINGS: Heart and vasculature: Pulmonary emboli noted within the distal right main pulmonary artery extending within the lobar, segmental, and subsegmental branches of the right middle and lower lobes. Additional clot burden noted within the distal lobar to segmental branches of the right upper lobe in addition to segmental branches of the left upper and lower lobes. The main pulmonary artery is dilated to 3.5 cm. There is mild straightening of the interventricular septum as well as mild reflux of contrast within the IVC, suggestive of right heart strain. Mild cardiomegaly. No pericardial effusion. No thoracic aortic aneurysm. Lungs and pleura: Bibasilar atelectasis. No discrete consolidation. No pleural effusion or pneumothorax. No suspicious pulmonary nodule or mass. Lymph nodes/mediastinum: No suspicious lymphadenopathy. Chest wall: No suspicious chest wall mass or fluid collection. Upper abdomen: No acute abnormality. Bones: No acute abnormality. IMPRESSION: 1. Pulmonary emboli with clot burden within all pulmonary lobes, most extensive on the right where clot is present within the distal right main pulmonary artery as well as the lobar and segmental branches of the right upper, middle, and lower lobes. Mild straightening of the interventricular septum as well as mild reflux of contrast within the IVC may reflect sequelae of right heart strain. 2. Dilated pulmonary artery may be seen in the setting of pulmonary hypertension. Above critical findings were relayed to provider Dr. Looney via telephone on 05/03/2024 at 10:54 p.m. CDT. Please note that all CT scans at this facility use dose modulation, iterative reconstruction, and/or weight-based dosing when appropriate to reduce radiation dose to as low as reasonably achievable. Dictated by Donovan Tim MD @ 05/03/2024 10:55:22 P Will likely need reultrasound of his leg Initiated heparinization. Discussed with hospitalist for admission. We did not measure a fever here but reported per family earlier. Perhaps combination of postop knee and pulmonary emboli is contributing to this. Spouse and daughters expressed concern about admission here given spouse's brother who fortunately with extensive pulmonary emboli. We were requested to find accommodations elsewhere. Did ultimately find a bed thankfully at [facility]. Pending transport at this time. Medical Records Medical records reviewed: Yes I reviewed the patient's medical records Lab Data Lab results reviewed: Yes I reviewed the patient's lab results Labs: Lab Results 05/03/24 05/03/24 05/03/24 Range/Units 20:30 20:57 21:15 WBC 12.21 H (4.50-11.00) K/uL RBC 4.48 (4.30-5.90) m/uL Hgb 12.5 L (13.5-17.5) gm/dL Hct 38.1 (37.0-53.0) % MCV 85 (80-100) fL MCH 28 (26-34) pg MCHC 33 (32-36) gm/dL RDW Coeff of Stu 13.6 (11.5-15.5) % Plt Count 226 (140-440) K/uL Neut % (Auto) 80.7 H (42.0-72.0) % Lymph % (Auto) 8.5 L (20-44) % [place] % (Auto) 10.3 (0.0-11.0) % Eos % (Auto) 0.1 (0.0-7.0) % Baso % (Auto) 0.2 (0.0-3.0) % Neut # (Auto) 9.90 H (1.7-7.0) K/uL Lymph # (Auto) 1.00 (0.90-2.90) K/uL [place] # (Auto) 1.30 H (0.00-0.90) K/UL Eos # (Auto) 0.00 (0.00-0.50) K/uL Baso # (Auto) 0.00 (0.00-0.30) K/uL Abs Immat Gran (auto) 0.00 (0.00-0.30) K/uL Imm/Tot Granulo (auto) 0.2 % INR 1.14 H (0.91-1.10) APTT 28 (23-33) Seconds Sodium 135 (135-149) mmol/L Potassium 4.2 (3.6-5.1) mmol/L Chloride 98 (96-114) mmol/L Carbon Dioxide 27 (20-32) mmol/L Anion Gap 10 (7-15) mEq/L BUN 19 (7-30) mg/dL Creatinine 1.2 (0.5-1.5) mg/dL Estimated Creat Clear 62.75 Estimated GFR 66 ml/min Glucose 145 H (60-115) mg/dL Calcium 8.6 (8.4-10.6) mg/dL C-Reactive Protein 17.8 H (0.5-1.0) mg/dL NT-Pro-B Natriuret Pep 964 pg/mL SARS-CoV-2 (PCR) Negative SARS-CoV-2 (Negative) Influenza Type A (PCR) Negative PCR FLU A (Negative) Influenza Type B (PCR) Negative PCR FLU B (Negative) RSV (PCR) Negative PCR RSV (Negative) Lab Acknowledgement Test Added 05/03/24 Range/Units 23:01 WBC (4.50-11.00) K/uL RBC (4.30-5.90) m/uL Hgb (13.5-17.5) gm/dL Hct (37.0-53.0) % MCV (80-100) fL MCH (26-34) pg MCHC (32-36) gm/dL RDW Coeff of Stu (11.5-15.5) % Plt Count (140-440) K/uL Neut % (Auto) (42.0-72.0) % Lymph % (Auto) (20-44) % [place] % (Auto) (0.0-11.0) % Eos % (Auto) (0.0-7.0) % Baso % (Auto) (0.0-3.0) % Neut # (Auto) (1.7-7.0) K/uL Lymph # (Auto) (0.90-2.90) K/uL [place] # (Auto) (0.00-0.90) K/UL Eos # (Auto) (0.00-0.50) K/uL Baso # (Auto) (0.00-0.30) K/uL Abs Immat Gran (auto) (0.00-0.30) K/uL Imm/Tot Granulo (auto) % INR (0.91-1.10) APTT (23-33) Seconds Sodium (135-149) mmol/L Potassium (3.6-5.1) mmol/L Chloride (96-114) mmol/L Carbon Dioxide (20-32) mmol/L Anion Gap (7-15) mEq/L BUN (7-30) mg/dL Creatinine (0.5-1.5) mg/dL Estimated Creat Clear Estimated GFR ml/min Glucose (60-115) mg/dL Calcium (8.4-10.6) mg/dL C-Reactive Protein (0.5-1.0) mg/dL NT-Pro-B Natriuret Pep pg/mL SARS-CoV-2 (PCR) (Negative) Influenza Type A (PCR) (Negative) Influenza Type B (PCR) (Negative) RSV (PCR) (Negative) Lab Acknowledgement Test Added ECG Data Attestation: I personally reviewed and interpreted this ECG as follows: (Normal sinus rhythm. No strain noted. Rate of 92.) Critical Care Time Critical Care Time Critical Care Time: Yes Attestation: The patient required my highest level preparedness to intervene emergently and I personally spent this critical care time directly and personally managing the patient. This critical care time included: Obtaining a history; Examining the patient; Pulse oximetry; Ordering and reviewing of studies; Arranging urgent treatment with development of a management plan; Evaluation of patients response to treatment; Frequent reassessment discussions with other providers. This critical care time was performed to assess and manage the high probability of imminent life-threatening deterioration that could result in multiorgan failure. It was exclusive of separate billable procedures and treating other patients and teaching time. Total Critical Care Time in Minutes: 40 Discharge Plan Discharge Clinical Impression: Pulmonary emboli, Postoperative pain of left knee, Hypoxia Patient Disposition: Xfer Other Discharge Location: [facility] Condition: Stable Prescriptions: No Action acetaminophen 500 mg capsule 500 - 1,000 mg PO Q6H MDD 4000mg per day PRN (Reason: pain) Qty: 100 0RF aspirin [Adult Aspirin Regimen] 81 mg tablet,delayed release (DR/EC) 81 mg PO DAILY sennosides [Senna Lax] 8.6 mg Tablet 17.2 mg PO BID PRN (Reason: constipation) Qty: 100 0RF aspirin [Aspirin Childrens] 81 mg tablet,chewable 81 mg PO BID 30 Days Qty: 60 0RF hydromorphone 2 mg tablet 2 mg PO Q6H MDD 4 tabs per day PRN (Reason: pain) Qty: 28 0RF Rx Instructions: Minimize. Discontinue as soon as possible Stand Alone Forms: [facility]
--- NOTE | 2024-05-03 20:52 | CRLHL7_ITS ---
For Patients: As a result of the Cures Act, medical imaging exams and procedure reports are released immediately into your electronic medical record. You may view this report before your referring provider. If you have questions, please contact your health care provider. Indication: Postoperative fever and hypoxia. Technique: Chest one view. Comparison: Chest x-ray 04/24/2024. Findings/Impression: Mild pulmonary vascular congestion appears mildly increased compared to the previous chest radiographs. Very mild bilateral perihilar patchy opacification may related to mild vascular congestion or may reflect developing infectious/inflammatory process in the appropriate clinical context. No pleural effusion or pneumothorax. No acute osseous abnormality. Dictated by Donovan Tim MD @ 05/03/2024 9:36:39 PM (Electronically Signed)
--- NOTE | 2024-05-03 20:52 | CRLHL7_ITS ---
For Patients: As a result of the Century Cures Act, medical imaging exams and procedure reports are released immediately into your electronic medical record. You may view this report before your referring provider. If you have questions, please contact your health care provider. Indication: Leg pain, hypoxia Technique: DVT ultrasound of the left lower extremity. Grayscale and color Doppler imaging utilized. Duplex/spectral analysis used. Compression and augmentation as clinically warranted. Comparison: None Findings: Some vessels were poorly visualized and some could not be compressed due to patient discomfort and pain. Allowing for this, vessels are grossly compressible without evidence of filling defect to suggest DVT. No superficial thrombosis appreciated. Probable Baptiste`s cyst. Impression: Somewhat limited examination due to patient pain and discomfort resulting in incomplete compression and poor visualization of distal veins. Allowing for this, no overt DVT is appreciated. Dictated by Gordon Todd MD @ 05/03/2024 10:12:22 PM (Electronically Signed)
[2024-05-03] MEDS: 0.9 % SODIUM CHLORIDE 500 ML 500 ML IV (20:59)
[2024-05-03 21:03] LABS: Basophils Percent Auto 0.2 % (0.0-3.0); Eosinophils Percent Auto 0.1 % (0.0-7.0); Hematocrit 38.1 % (37.0-53.0); Hemoglobin* 12.5 gm/dL (13.5-17.5); Immature Granulocytes Pct Auto 0.2 %; Lymphocytes Percent Auto 8.5 % (20-44); Mean Corpuscular HGB Conc 33 gm/dL (32-36); Mean Corpuscular Hemoglobin 28 pg (26-34); Mean Corpuscular Volume 85 fL (80-100); Monocytes Percent Auto 10.3 % (0.0-11.0); Neutrophils Percent Auto 80.7 % (42.0-72.0); Platelet Count* 226 K/uL (140-440); RDW Coefficient of Variation % 13.6 % (11.5-15.5); Red Blood Count 4.48 m/uL (4.30-5.90); White Blood Count* 12.21 K/uL (4.50-11.00)
--- OUTSIDE RECORDS SUMMARY | 2024-05-03 21:07 | XMS_ITS | Clinical Summary ---
Author Organization [facility] Address [address] [place] [id number] Care Team Providers Care Manager Privacy Name Role Phone Anthony West MD Primary Care Provider [phone] Allergies No known active allergies Medications aspirin [...] Department Care Team Description 05/02/2024 Orders Only [facility] Scanner 1 scan: (1-Ord) [facility], KNEE LT 2V, 05/02/2024 04/26/2024 Orders Only [facility] [address] [place] [address] Anthony West MD <No scans attached> 04/24/2024 2:15 PM CDT Ancillary Procedure [place] [address] [facility] [address] [place] [address] 04/24/2024 9:15 AM CDT Ancillary Procedure [facility] [address] [place] [address] 04/24/2024 8:15 AM CDT Office Visit [facility] [address] [place] [address] Anthony West MD Preoperative Exam (Left knee replacement on 05/02/[address] [facility] [address] 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 file Not on file [...] 3:46 PM CDT HSU (dyspnea on exertion) AR READING EKG - NO CHARGE, COMP ONLY [...] ABD AORTA SCREENING Routine 03/21/2021 11:25 AM CRM SPECIALIST Screening for AAA (aortic abdominal aneurysm) ANTI HCV Routine 03/21/2021 10:23 AM CRM SPECIALIST Need for hepatitis C screening test COLONOSCOPY SCREENING Routine 05/15/2020 7:55 AM CDT Screening for colon cancer from Last 3 Months or Most Recently Relevant to Health Maintenance Results * SCAN-RADIOLOGY REPORT (05/02/2024 12:00 AM CDT) Anatomical Region Laterality Modality Other us Scanner OTHER Final Result * EKG 12 LEAD (04/24/2024 3:46 PM CDT) Anthony West MD EKG ORD Final Resu lt * AR READING EKG - NO CHARGE, COMP ONLY [...] reviewed by your primary care provider or personal care assistant. - These recommendations are generalized and may [...] AM CDT) Case Report Pathology Report Case: [id number] Authorizing Provider: Anthony West MD Collected: 04/24/2024 1006 Ordering Location: [facility] Received: 04/25/2024 0745 Clinic Pathologist: Pranav Parks MD Specimen: Right Shoulder 04/28/2024 3:20 PM CDT [facility]-C ENTRAL LABORATORY Final Diagnosis A) SKIN, RIGHT SHOULDER, BIOPSY: 1. Inflamed seborrheic keratosis 2. No evidence of malignancy 04/28/2024 3:20 PM CDT [facility] LABORATORY-C ENTRAL LABORATORY at 1520 CDT Clinical Information Skin lesion on the right shoulder. 04/28/2024 3:20 PM CDT [facility]-C ENTRID LABORATORY Gross Description A) Received in formalin, [...] intact TLF 04/26/2024 04/28/2024 3:20 PM CDT [facility] Microscopic Description The final diagnosis is based on microscopic examination of appropriate sections of all specimens. A) There is a proliferation of basaloid epidermal cells with hyperkeratosis, no significant atypia, and no invasion. There is associated chronic inflammation. The presence of yellow and red ink is confirmed on tissue sections. 04/28/2024 3:20 PM CDT [facility] Additional Information Interpreted at [facility] Central Laboratory - [address] [place] [address]. [facility] [address] [address] 04/28/2024 3:[address] [facility] Other (Right Shoulder) Non-Blood / Unknown 04/24/2024 10:06 AM CDT 04/25/2024 7:45 AM CDT Anthony West MD PATHOLOGY/CYTOLOGY Final R esult [facility] [address] [place] [address], * (ABNORMAL) HEMOGLOBIN A1C (04/24/2024 9:11 AM [...] Anthony West MD CHEMISTRY Final Resu lt [facility] [address] [place] [address], [facility] [address] [place] [address] * CBC W PLT NO DIFF (04/24/2024 9:11 AM CDT) [facility] WHITE BLOOD CELL COUNT 6.6 3.8 - 10.8 Thousand/u L [facility] RED BLOOD CELL COUNT 4.95 4.20 - 5.80 Million/uL [facility] HEMOGLOBIN 13.9 13.2 - 17.1 [...] 7.5 - 12.5 fL [facility] Blood BLOOD SPECIMEN / Unknown 04/24/2024 9:11 AM CDT 04/24/2024 9:13 AM CDT Narrative [facility] - 04/25/2024 3:43 AM CDT FASTING:YES FASTING: YES Anthony West MD HEMATOLOGY Final Resu lt [facility] [address] [place] [address], [place] [phone] [facility] [address] [place] [address] * PSA TOTAL (DIAG OR SCREEN) (04/24/2024 9:11 AM CDT) Pathologist [facility] PSA, TOTAL 0.87 < OR = 4.00 ng/mL [facility] mignon Heath Comment: The total PSA value from this assay system is standardized against the WHO standard. The test result will be approximately 20% lower when compared to the equimolar-standardized total PSA (Abraham Coh[place]). Comparison of serial PSA results should be [...] Anthony West MD CHEMISTRY Final Resu lt [facility] [address] [place] [address], [place] [phone] [facility] [address] [place] [address] * (ABNORMAL) LIPID PANEL (04/24/2024 9:11 AM CDT) CHOLESTEROL, TOTAL 173 <200 mg/dL [facility] omartine Heath HDL CHOLESTEROL 45 > OR = 40 mg/dL [facility] o[facility] Kumar TRIGLYCERIDES 151(H) <150 mg/dL [facility] omartine Kumar LDL-CHOLESTEROL 103(H) mg/dL (calc) [facility] omartine Kumar Comment: Reference range: <100 Desirable range <100 mg/dL for primary prevention; <70 mg/dL for patients with CHD or diabetic patients with > or = 2 CHD risk factors. LDL-C is now calculated using the Flash calculation, which is a validated novel method providing better accuracy than the Friedewald equation in the estimation of LDL-C. Jarvis SS et al. ANABELLA. 2013;310(19): 1094-1659 (http://education.Thanx/faq/VHW995) CHOL/HDLC RATIO 3.8 <5.0 (calc) [facility] Social[facility]martine Kumar NON HDL CHOLESTEROL 128 <130 mg/dL (calc) [facility] gabimartine Kumar Comment: For patients with diabetes plus 1 major ASCVD risk factor, treating to a non-HDL-C goal of <100 mg/dL (LDL-C of <70 mg/dL) is considered a therapeutic option. Blood BLOOD SPECIMEN / Unknown 04/24/2024 9:11 AM CDT 04/24/2024 9:13 AM CDT Narrative [facility] - 04/25/2024 3:31 AM CDT FASTING:YES FASTING: YES Anthony West MD CHEMISTRY Final Resu lt [employer] [address] [place] [address], [facility] [address] [place] [address] * (ABNORMAL) BASIC METABOLIC PANEL (04/24/2024 9:11 AM CDT) GLUCOSE 108(H) 65 - 99 mg/dL [facility]imart[facility] Heath Comment: Fasting reference interval For [...] CHEMISTRY Final Resu lt Performing Organization Address [facility]/State/ZIP Co de Phone Number [facility] [address] [place] [address], [facility] [address] [place] [address] * AST (SGOT) (04/24/2024 12:00 AM CDT) AST 16 10 - 35 U/L [facility] Blood BLOOD SPECIMEN / Unknown 04/24/2024 04/26/2024 6:47 PM CDT Anthony West MD CHEMISTRY Final Resu lt [facility] [address] [place] [address], [facility] [address] [place] [address] * US ABD AORTA SCREENING [[id number]] (03/21/2021 11:25 AM CRM SPECIALIST) Anatomical Region Laterality Modality Abdomen, AORTA Ultrasound 03/21/2021 1:48 PM CRM SPECIALIST Impressions 03/21/2021 1:48 PM CRM SPECIALIST No evidence of abdominal aortic aneurysm. Dictated by Clemente Mayfield MD @ Mar 21 2021 1:48PM (Electronically Signed) Narrative 03/21/2021 1:48 PM CRM SPECIALIST For Patients: As a result of the [...] lt * ANTI HCV (03/21/2021 10:23 AM CRM SPECIALIST) HEPATITIS C ANTIBODY Non-React ricardo Non-React ricardo 03/21/2021 6:35 PM CRM SPECIALIST [facility] TRAL LABORATORY Comment:Antibodies to HCV no t detected; does not exclude the possibility of exposure to HCV. Blood BLOOD SPECIMEN / Unknown Venipuncture / Unknown 03/21/2021 10:23 AM CRM SPECIALIST 03/21/2021 10:23 AM CRM SPECIALIST us Anthony West MD SEND OUTS Final Resu lt [facility]CEN[facility]AL LABORATORY [address] [place] [address], [place] * COLONOSCOPY (05/15/2020 7:27 AM CDT) [...] adequate candidate for conscious sedation. The [id number] was passed through the anus and advanced [...] 7:27 AM Procedure Code(s): --- Professional --- 84096, Colonoscopy, flexible; diagnostic, including collection of specimen(s) bybrushing or washing, when performed (separateprocedure) Diagnosis Code(s): --- Professional --- Z12.11, Encounter for screening formalignant neoplasm of colon K57.30, Diverticulosis of large intestine without perforation or abscess withoutbleeding CPT copyright 2019 [employer]. All rights reserved. The codes documented in this report are preliminary and upon metal stud framer reviewmay be revised to meet current compliance requirements. Scope In: 8:49:27 AM Scope Withdrawal Time 0 hours 8 minutes 30 seconds Scope Out: 9:10:48 AM us Jarvis Singleton MD PROCEDURE ORD Final Res ult from Last 3 Months or Most Recently Relevant to Health Maintenance Insurance BLUE CROSS LA JOLLA BLUE MR PB ONLY WC WORKERS COMP WC WORKERS COMP [facility]ICLE [facility] * Guarantor: POST (FORMALLY [employer]) Account Type Relation to Patient Date of Phone Billing Address [facility]athryn Employer ATTN ROEL ALVAREZ [address] [place] [address] Advance Directives Documents on File Type Date 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
[2024-05-03 21:08] LABS: Slide Review Reflex No
[2024-05-03 21:11] LABS: PCR FLU A Negative PCR FLU A (Negative); PCR FLU B Negative PCR FLU B (Negative); PCR RSV Negative PCR RSV (Negative); SARS PCR* Negative SARS-CoV-2 (Negative)
[2024-05-03 21:23] LABS: Chloride* 98 mmol/L (96-114); Sodium* 135 mmol/L (135-149)
[2024-05-03 21:24] LABS: Potassium* 4.2 mmol/L (3.6-5.1)
[2024-05-03 21:27] LABS: Anion Gap 10 mEq/L (7-15); Blood Urea Nitrogen* 19 mg/dL (7-30); Calcium* 8.6 mg/dL (8.4-10.6); Carbon Dioxide* 27 mmol/L (20-32); Creatinine* 1.2 mg/dL (0.5-1.5); Est. Creatinine Clearance* 62.75; Estimated Glomerular Filt Rate 66 ml/min; Glucose* 145 mg/dL (60-115)
[2024-05-03 21:41] LABS: C Reactive Protein* 17.8 mg/dL (0.5-1.0); NT Pro B Type NatriureticPept* 964 pg/mL
--- NOTE | 2024-05-03 21:51 | CRLHL7_ITS ---
For Patients: As a result of the Century Cures Act, medical imaging exams and procedure reports are released immediately into your electronic medical record. You may view this report before your referring provider. If you have questions, please contact your health care provider. INDICATION: Pulmonary embolism (PE) suspected. Hypoxia and fever. Recent surgery 05/02/2024. TECHNIQUE: CTA chest PE was acquired with 95 cc Omnipaque 370 IV contrast. Multiplanar reformats performed including axial MIP reconstructions. COMPARISON: Chest x-ray 05/03/2024. FINDINGS: Heart and vasculature: Pulmonary emboli noted within the distal right main pulmonary artery extending within the lobar, segmental, and subsegmental branches of the right middle and lower lobes. Additional clot burden noted within the distal lobar to segmental branches of the right upper lobe in addition to segmental branches of the left upper and lower lobes. The main pulmonary artery is dilated to 3.5 cm. There is mild straightening of the interventricular septum as well as mild reflux of contrast within the IVC, suggestive of right heart strain. Mild cardiomegaly. No pericardial effusion. No thoracic aortic aneurysm. Lungs and pleura: Bibasilar atelectasis. No discrete consolidation. No pleural effusion or pneumothorax. No suspicious pulmonary nodule or mass. Lymph nodes/mediastinum: No suspicious lymphadenopathy. Chest wall: No suspicious chest wall mass or fluid collection. Upper abdomen: No acute abnormality. Bones: No acute abnormality. IMPRESSION: 1. Pulmonary emboli with clot burden within all pulmonary lobes, most extensive on the right where clot is present within the distal right main pulmonary artery as well as the lobar and segmental branches of the right upper, middle, and lower lobes. Mild straightening of the interventricular septum as well as mild reflux of contrast within the IVC may reflect sequelae of right heart strain. 2. Dilated pulmonary artery may be seen in the setting of pulmonary hypertension. Above critical findings were relayed to provider Dr. Looney via telephone on 05/03/2024 at 10:54 p.m. CDT. Please note that all CT scans at this facility use dose modulation, iterative reconstruction, and/or weight-based dosing when appropriate to reduce radiation dose to as low as reasonably achievable. Dictated by Donovan Tim MD @ 05/03/2024 10:55:22 PM (Electronically Signed)
[2024-05-03] MEDS: ONDANSETRON 2 MG/ML inj 4 MG IVP (22:31)
[2024-05-03] MEDS: HYDROmorphone 0.5 mg/0.5 ml inj 1 MG IVP (22:36)
[2024-05-03] MEDS: HEPARIN 5,000 UNIT/0.5 ML INJ 10000 UNIT IVP (23:17)
[2024-05-03] MEDS: HEPARIN 25,000 UNIT/500 ML BAG 30 UNIT IV (23:19)
[2024-05-03 23:23] LABS: INR 1.14 (0.91-1.10); Partial Thromboplastin Time* 28 Seconds (23-33); Prothrombin Time 15.5 Seconds
[2024-05-04] VITALS (7 sets, daily range): BP systolic 121–123; BP diastolic 71–80; PULSE 78–87; O2SAT 91–97
[2024-05-04 00:52] LABS: Appearance Urine Clear (Clear); Bilirubin Urine Negative (Negative); Blood Urine Negative (Negative); Color Urine Yellow (Yellow); Glucose Urine Negative (Negative); Ketones Urine Negative (Negative); Leukocyte Esterase Urine Negative (Negative); Nitrite Urine Negative (Negative); Protein Urine Trace (Negative); Urobilinogen Urine 0.2 (0.2-1.0)
[2024-05-04 00:58] LABS: Mucus Urine Few; RBC Urine 0-2 (0-2); Squamous Epithelial Cell Urine Few (None-Few); WBC Urine 0-2 (0-5)
== END 2024-05-04 01:30 | disposition other institution (70) ==
PROVIDERS: Emergency Provider Family Medicine; PCP Surgery
DX: I26.99 Other pulmonary embolism without acute cor pulmonale (principal); G89.18 Other acute postprocedural pain; M25.562 Pain in left knee; R09.02 Hypoxemia; I50.30 Unspecified diastolic (congestive) heart failure
CPT/HCPCS: 36415; 71045; 71275; 80048; 81001; 83880; 85025; 85610; 85730; 86140; 87040; 87631; 93005; 93971; 94761; 99284; 99291; J1171; J1644; J2405; J7030; Q9967

== ENCOUNTER 2024-05-04 01:15 | Outpatient (CLI) | payer MEDICARE, BC, SELFPAY | END 2024-05-04 01:16 | disposition home or self-care (01) | LOC: AMB 05-05 09:13 | PROVIDERS: PCP Surgery; Visit Provider Family Medicine | DX: I26.99 Other pulmonary embolism without acute cor pulmonale (principal); R09.02 Hypoxemia | CPT/HCPCS: A0425; A0434 ==

== ENCOUNTER 2024-08-16 07:30 | Outpatient (RCR) | payer MEDICARE, BC, SELFPAY ==
--- NOTE | 2024-04-25 14:56 | PT.OPEX ---
PT [facility] Eval PT [facility] Outpatient Eval Start: 04/25/24 07:16 Freq: Status: Active Protocol: Document 04/25/24 07:16 MLS (Rec: 04/25/24 14:55 MLS [id number]) E-signed By Sobia Parkinson DPT Physical Therapy Outpatient Evaluation Insurance Information Recert Due Date 07/23/24 Insurance Name Medicare B,Blue Cross/Blue Shield Medical Diagnosis M17.12 primary OA, left knee Z96.652 presence left artificial knee joint s/p Left TKA 05/02/24 Treating Diagnosis Left TKA protocol Referring MD Dr. Horne Subjective Preferred Name Don Subjective Patient is a 69 year old female who presents to physical therapy prior to left TKA on 05/02/24. He states that he is having his right knee done next year. He states that both knees are bone on bone. He has a recumbent bike at home. Significant past medical history includes left CURTIS 3 years ago. 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 Very active with [employer] activities as well Precautions Weight Bearing Status Full Weight Bearing Therapy Limitations/Systems Review Not Limited Objective Other/Pertinent Objective GAIT/FUNCTIONAL MOBILITY Antalgic gait pattern, no assistive device KNEE ROM Left: Extension/Flexion: 0-110 Right: WNL HIP ROM Grossly tested WNL LLE MMT: Hip flexion: R 5/5 L 5/5 Hip abduction: R 5/5 L 5/5 Hip extension: R 5/5 L 5/5 Knee flexion: R 5/5 L 5/5 Knee extension: R 5/5 L 5/5 Reviewed/demonstrated on frequency to perform HEP post operatively including: long sitting quad ankle pumps supine heel slide with strap supine quad sets supine SAQ SLR with quad set seated long arc quad seated knee flexion AAROM supine knee extension stretch on towel roll Extensive discussion and education on what to expect post operatively. Time was spent discussing home modifications, Assistive devices, pain control, fall prevention, hospital stay time line, and assist needed for activities post surgically. Pt questions were answered and demonstrated understanding. Assessment Assessment/Impression Pt is a 69 year old male who presents to PT prior to left TKA on 05/02/24. Patient also has notable objective findings including limited ROM, tenderness to palpation, and decreased strength which are also likely contributing to the problem. Patient is a good candidate for skilled therapy to target deficits described above. Skilled PT intervention is necessary for use of therapeutic exercise manual therapy, neuromuscular re- education, gait training, and therapeutic activity. Functional impairments include difficulty with: standing, walking, exercising, sleeping and ADLs. See appropriate sections of PT eval for complete list of goals and POC . D/C plan and criteria is for pt to achieve the goals as listed below or until max rehab potential is met. Pt was agreeable with plan of care and goals established. Primary Functional Limitations standing exercising walking sleeping ADLs Plan of Care Rehabilitation Potential Good Physical Therapy Goals Within 10-12 weeks: 1) Pt will improve knee AROM at least 0 to 120 for improved sit to stand transfers 2) Pt will demonstrate negative extensor lag during straight leg raise exercise with ability to complete at least 15 reps with 5 sec hold to improve strength for ambulation 3) Patient will demonstrate/ report ability to walk for 15 minutes w/SPC with pain level <1/10, to allow for community and household ambulation. 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 Coordination/Communication With Referral Source Treatment Plan/Direct Interventions Gait Training,Manual Therapy, Neuromuscular Re-ed, Therapeutic Activities, Therapeutic Exercises Patient Will Be Discharged From Therapy Independently Progressing Evaluation Billing Untimed Code Treatment Minutes 25 Complexity Low Certification Information Provider Signature Required Yes Provider Signature Shows Agreement With POC & Medical Necessity Physician NPI Number Write NPI# Here Physician Comment/Change : Physician Signature & Date Requested Please Sign/Date Here
--- NOTE | 2024-07-26 08:11 | PT.OPDNX ---
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 Horne Subjective Preferred Name Don Subjective Patient is a 69 year old male who presents to physical therapy prior to left TKA on 05/02/24. He states that he is walking. 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 He reports that he was very stiff last night. He is going back to do the same thing today. Pain Comments Today: 1/10 on a 0-10 pain scale with 10 = extreme pain Precautions Weight Bearing Full Weight Bearing Status Home Exercise Home Exercise Access Code: [email or web address] Comments URL: [email or web address] Date: 05/16/2024 Prepared by: Sobia Parkinson Exercises - Supine Quadricep Sets - 1 x daily - 7 x weekly - 3 sets - 10 reps - Supine Knee Extension Strengthening - 1 x daily - 7 x weekly - 3 sets - 10 reps - Supine Heel Slide with Strap - 1 x daily - 7 x weekly - 3 sets - 10 reps - Seated Knee Extension Stretch with Chair - 1 x daily - 7 x weekly - 3 sets - 10 reps - Seated Knee Flexion Slide - 1 x daily - 7 x weekly - 3 sets - 10 reps SLR LAQ - RTB terminal knee ext w ball standing HS curl Objective Other/Pertinent GAIT/FUNCTIONAL MOBILITY Objective Antalgic gait pattern, walker KNEE ROM Left: Extension/Flexion: -30-40 with overpressure Right: WNL HIP ROM Grossly tested WNL LLE MMT: Hip flexion: R 5/5 L 5/5 Hip abduction: R 5/5 L 5/5 Hip extension: R 5/5 L 5/5 Knee flexion: R 5/5 L 5/5 Knee extension: R 5/5 L 5/5 At first pre-op - unable to perform SLR, severe medial bruising and swelling. Mild rash noted. Several small bumps noted medially under bruising. Patient Instructed Yes in Risks/Benefits Therapeutic Exercise Therapeutic Exercise 50 Minutes (minutes) Therapeutic Exercise Tubigrip J provided : To Restore Stairs up and down Functional Status Sent home RTB recumbent bike, seat level 6, seat 5, seat 4 stair stretching- flexion and extension leg press - 110# seat level 3, 2 x 15 single left leg press 75#, seat level 3 x 15 quad kick machine x 15, plate 4.5 quad kick single leg x 10, plate 2 HS curl machine x 15 plate 5 single leg HS curl x 10, plate 3 step ups TKE with GTB seated knee flexion AAROM - at home supine knee extension stretch on towel roll - at home flexion and extension stretching in supine, sitting and side lying with overpressure high knee walking/backward walking Manual Therapy Techniques Manual Therapy Raking techniques Techniques DTM to hamstring and ITB Manual flexion/extension stretching in side lying, supine and sitting with overpressure prone extension stretching with overpressure Treatment Minutes Timed Code Treatment 50 Minutes Total Treatment Time 50 Billing Units Therapeutic Exercise 3 Units Assessment/Impression Assessment/ Pt is a 69 year old male who presents to PT prior to Impression left TKA on 05/02/24. Left knee extension/flexion started session at -5-123 and ended at -5-125 with overpressure. Increased quad kick to 4.5 plates with good tolerance. He was able to mow ditches for several hours yesterday although was very stiff. Skilled PT intervention is necessary for use of therapeutic exercise manual therapy, neuromuscular re-education, gait training, and therapeutic activity. D/C plan and criteria is for pt to achieve the goals as listed below or until max rehab potential is met. Primary Functional standing Limitations exercising walking sleeping ADLs Plan of Care Physical Therapy Within 10-12 weeks: Goals 1) Pt will improve knee AROM at least 0 to 120 for improved sit to stand transfers 2) Pt will demonstrate negative extensor lag during straight leg raise exercise with ability to complete at least 15 reps with 5 sec hold to improve strength for ambulation 3) Patient will demonstrate/report ability to walk for 15 minutes w/SPC with pain level <1/10, to allow for community and household ambulation. 4) Pt will be indep with HEP for manager terminal management of pain/symptoms 5) Patient will ascend/descend at least 10 steps using single rail and reciprocal pattern to improve ease of mobility at home/community 7) Patient will demonstrate/report ability to walk for 15 minutes w/o AD with pain level <1/10, to allow for community and household ambulation. Daily Plan of Care Continue per POC Recertification Information Initial 04/25/24 Certification Date Recertification 07/26/24 Start Date Recertification Due 07/23/24 Date Reasons to Continue Ben had a very slow start to his PT after his knee Skilled Therapy replacement, secondary to being in the hospital for a week with blood clots. He did struggle a lot with pain control in the beginning. He has been progressing nicely with PT and now has a 120 degree bend. We have three more session to work on balance and then will be discharged. Rehabilitation Good Potential Continued Plan of exercise Care and ther activities Interventions Provider Signature POC & Medical Necessity Shows Agreement With Physician Comment/ Comment or Changes Change Physician NPI Number #
== END 2024-10-12 14:42 | disposition home or self-care (01) ==
PROVIDERS: PCP Surgery; Visit Provider Orthopaedic Surgery
DX: M17.12 Unilateral primary osteoarthritis, left knee (principal); Z96.652 Presence of left artificial knee joint; Z01.818 Encounter for other preprocedural examination; Z51.89 Encounter for other specified aftercare
CPT/HCPCS: 97110; 97140; 97161